=== PATIENT | female | born 1955 | race Caucasian/White ===

== ENCOUNTER 2018-10-26 06:50 | Day surgery (SDC) | payer MEDICARE, OTHER ==
[~2018-10-26] VITALS: Ht 165.1 cm; Wt 97.0 kg
[~2018-10-26 06:50] MED LIST: ASPI81CH PO; ATOR80 PO; Altoprev60 MG PO; Aspir 8181 MG PO; BISA10S PR; CALCAVITDA PO; CELE100; Colace100 MG PO; ENOX100I SC; HTN MEDICATION PO; HYDACE5 PO; K-Dur20 MEQ PO; LAVAP17G PO; LISI20 PO; LISI5 PO; LOVA20 PO; LOVA40 PO; METO25 PO; METO25ER PO; METPRE4DP PO; NITR.6SL SL; OMEP20ER PO; OMEP40CA12 PO; ONDA4 PO; POTASSIUM CHLO20 MEQ PO; POTCHL10ER PO; PRED20 PO; PROM25 PO; Pepcid20 MG PO; Plavix75 MG PO; Prednisone2.5 MG PO; RISEDRONATE SOD35 M1 PO; TRAM50 PO; Toprol Xl25 MG PO; Vitamin D2000 UNIT PO; WARF7.5 PO; XARELTO15 MG PO; XARELTO20 MG PO; ZOLP5 PO; Zofran4 MG PO
== END 2018-10-26 08:52 | disposition home or self-care (01) ==
LOC: ORSCSDS 06:50
PROVIDERS: Internal Medicine Gastroenterology
PROC: 0DB58ZX Excision of Esophagus, Via Natural or Artificial Opening Endoscopic, Diagnostic (ICD-10-PCS; principal; 2018-10-26 08:00)
PROC: 0DB98ZX Excision of Duodenum, Via Natural or Artificial Opening Endoscopic, Diagnostic (ICD-10-PCS; principal; 2018-10-26 08:00)
PROC: 0DB68ZX Excision of Stomach, Via Natural or Artificial Opening Endoscopic, Diagnostic (ICD-10-PCS; principal; 2018-10-26 08:00)
DX: R13.10 Dysphagia, unspecified (principal); R11.2 Nausea with vomiting, unspecified; K21.9 Gastro-esophageal reflux disease without esophagitis; K31.7 Polyp of stomach and duodenum; Q45.8 Other specified congenital malformations of digestive system; K44.9 Diaphragmatic hernia without obstruction or gangrene; K22.8 Other specified diseases of esophagus; Z79.82 Long term (current) use of aspirin; Z79.899 Other long term (current) drug therapy
CPT/HCPCS: 88305; 88342; J0330; J0461; J2405; J2704; J7120

== ENCOUNTER 2019-01-10 08:56 | Emergency (ER) | payer MEDICARE, OTHER ==
[~2019-01-10] VITALS: Ht 165.1 cm; Wt 88.0 kg
[2019-01-10] MEDS ORDERED: FURO80 (09:17)
[2019-01-10] MEDS ORDERED: Roxicodone5 MG PO (10:22)
[2019-01-10] MEDS ORDERED: TIZA4 PO (10:22)
== END 2019-01-10 10:30 | disposition home or self-care (01) ==
LOC: ER 08:56
DX: S29.011A Strain of muscle and tendon of front wall of thorax, initial encounter (principal); X58.XXXA Exposure to other specified factors, initial encounter; I10 Essential (primary) hypertension; E78.00 Pure hypercholesterolemia, unspecified; Z95.5 Presence of coronary angioplasty implant and graft; Z88.0 Allergy status to penicillin; Z88.8 Allergy status to other drugs, medicaments and biological substances; Z79.899 Other long term (current) drug therapy; Z79.82 Long term (current) use of aspirin; Z79.52 Long term (current) use of systemic steroids
CPT/HCPCS: 71101; 96372; 99283-25; J1170

== ENCOUNTER 2019-01-16 09:04 | Inpatient (IN) | payer MEDICARE, OTHER ==
[~2019-01-16] VITALS: Ht 165.1 cm; Wt 85.0 kg
[~2019-01-16 09:04] MED LIST changes: +FURO80; +Roxicodone5 MG PO; +TIZA4 PO
[2019-01-16 12:05] LABS: BASOPHILS ABSOLUTE AUTO 0.04 K/mm3 (0.00-0.23); BASOPHILS PERCENT AUTO 0 % (0-2); EOSINOPHILS ABSOLUTE AUTO 0.05 K/mm3 (0.00-0.68); EOSINOPHILS PERCENT AUTO 0 % (0-6); Hematocrit 38.8 % (33.0-51.0); Hemoglobin 12.3 g/dL (11.5-16.0); IMMATURE GRAN ABSOLUTE AUTO 0.06 K/mm3 (0.00-0.10); IMMATURE GRAN PERCENT AUTO 1 % (0-1); LYMPHOCYTES ABSOLUTE AUTO 1.33 K/mm3 (0.84-5.20); LYMPHOCYTES PERCENT AUTO 11 % (21-46); MONOCYTES ABSOLUTE AUTO 0.79 K/mm3 (0.16-1.47); MONOCYTES PERCENT AUTO 7 % (4-13); Mean Corpuscular HGB 31.7 pg (26.0-34.0); Mean Corpuscular HGB Conc 31.7 g/dL (31.5-36.5); Mean Corpuscular Volume 100 fL (80-100); Mean Platelet Volume 11.5 fL (9.1-12.4); NEUTROPHILS ABSOLUTE AUTO 9.36 K/mm3 (1.96-9.15); NEUTROPHILS PERCENT AUTO 81 % (41-73); Platelet Count 155 K/mm3 (150-400); RDW Coefficient Variation 13.4 % (11.7-14.2); RDW Standard Deviation 49.5 fL (35.1-46.3); Red Blood Cell Count 3.88 M/mm3 (3.80-5.20); White Blood Cell Count 11.63 K/mm3 (4.00-11.30)
[2019-01-16 12:29] LABS: Alanine Aminotransfer (ALT/SGP 41 U/L (12-78); Albumin, Blood 3.2 g/dL (3.4-5.0); Albumin/Globulin Ratio 0.9 (0.8-1.8); Alk Phos 105 U/L (50-136); Anion Gap 5 mmol/L (6-16); Aspartate Aminotrans (AST/SGOT 18 U/L (12-37); Bilirubin, Total 0.8 mg/dL (0.1-1.0); Blood Urea Nitrogen 17 mg/dL (8-24); Bun/Creatinine Ratio 21.9 (12.0-20.0); CO2, Blood 29 mmol/L (21-32); Calcium, Blood 8.6 mg/dL (8.5-10.1); Chloride, Blood 107 mmol/L (98-108); Creatinine, Blood 0.78 mg/dL (0.40-1.00); Globulin, Blood 3.6 g/dL (2.2-4.0); Glomerular Filtration Rate >60 (60-); Glucose, Blood 118 mg/dL (70-99); Potassium, Blood 3.9 mmol/L (3.5-5.5); Sodium, Blood 141 mmol/L (136-145); Total Protein, Blood 6.8 g/dL (6.4-8.2)
[2019-01-16] MEDS ORDERED: PRINIVIL10 MG PO (12:29)
[2019-01-16] MEDS ORDERED: PRED1 PO (12:43)
[2019-01-16 15:13] LABS: International Normalized Ratio 1.03; Prothrombin Time Results 10.9 Sec (9.7-11.5)
[2019-01-16] MEDS ORDERED: OXYC5 PO (15:56)
--- NOTE | 2019-01-16 18:29 | NUR ---
SHIFT SUMMARY: PATIENT ARRIVED TO PCU 3 AT APPROX 1500 VIA GURNEY FROM ER. PATIENT ABLE TO PIVOT TRANSFER TO BED WITH MINIMAL ASSIST D/T PAIN AND SOME MILD DIZZY SENSATIONS PER PATIENT. PATIENT SKIN C/D/I, NEW LINE STARTED IN TIFFANIE. PATIENT ADMISSION COMPLETED AND PATIENT ORIENTED TO ROOM, CALL LIGHT AND HOSPITAL POLICES. 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 PATIENT VSS ALTHOUGH SBP IS IN 90'S, BED LOW AND LOCKED WITH CALL LIGHT WITHIN REACH.
--- NOTE | 2019-01-17 07:11 | NUR ---
SUMMARY NO ACUTE CHANGES NOTED THROUGH THE NIGHT. PT REMAINS A&O X4. VSS, 2 L O2 VIA NC. DENIES SOB. 1 ASSIST TO THE BATHROOM. HEPERIN GTT @ 15 UNITS/KG/HR. REPORT GIVEN TO CELINE VINES. CALL LIGHT IN REACH
[2019-01-17 08:49] LABS: Hematocrit 39.1 % (33.0-51.0); Hemoglobin 12.2 g/dL (11.5-16.0); Mean Corpuscular HGB Conc 31.2 g/dL (31.5-36.5); Mean Corpuscular Volume 100 fL (80-100); Mean Platelet Volume 12.1 fL (9.1-12.4); Platelet Count 165 K/mm3 (150-400); RDW Coefficient Variation 13.6 % (11.7-14.2); RDW Standard Deviation 49.9 fL (35.1-46.3); Red Blood Cell Count 3.93 M/mm3 (3.80-5.20); White Blood Cell Count 11.06 K/mm3 (4.00-11.30)
[2019-01-17 08:57] LABS: Alanine Aminotransfer (ALT/SGP 40 U/L (12-78); Albumin, Blood 2.8 g/dL (3.4-5.0); Albumin/Globulin Ratio 0.7 (0.8-1.8); Alk Phos 113 U/L (50-136); Anion Gap 2 mmol/L (6-16); Aspartate Aminotrans (AST/SGOT 34 U/L (12-37); Bilirubin, Total 0.8 mg/dL (0.1-1.0); Blood Urea Nitrogen 19 mg/dL (8-24); Bun/Creatinine Ratio 19.5 (12.0-20.0); CO2, Blood 31 mmol/L (21-32); Calcium, Blood 8.9 mg/dL (8.5-10.1); Chloride, Blood 105 mmol/L (98-108); Creatinine, Blood 0.97 mg/dL (0.40-1.00); Glomerular Filtration Rate >60 (60-); Glucose, Blood 119 mg/dL (70-99); Sodium, Blood 138 mmol/L (136-145); Total Protein, Blood 6.8 g/dL (6.4-8.2)
--- NOTE | 2019-01-17 09:01 | NUR ---
DR HOUSE HERE TO SEE PT.
--- NOTE | 2019-01-17 11:28 | NUR ---
Patient is sitting up in bed with spouse, Dipesh, bedside. Patient explains her medical condition and her spiritual background (we share similar history in that we both attended [facility] for several years and patient still attends). Patient also told me her experience of the privious night in which she had extreme nightmares that she thought might be the result of the pain medications. I listened empathically and provided pastoral certified addiction counselor and prayer. Patient and Dipesh responded well and voiced appreciation for the visit. I will continue to remain available to patient and family.
--- NOTE | 2019-01-17 17:50 | NUR ---
DISCUSSED BOWEL CARE WITH PT EARLIER TODAY WITH PT AND . PT NOW REQUESTING TO HAVE SUPPOSITORY ORDERED FOR HER TO BE ABLE TO HAVE. DR NOTIFIED, SEE ORDER.
--- NOTE | 2019-01-17 19:44 | NUR ---
SHIFT SUMMARY PT EATING SMALL AMTS OF FOOD SHE REPORTS SHE HAS BEEN DOING SINCE SHE HAD A HERNIA REPAIR IN DECEMBER. PT BEEN ASSISTED WITH ADL'S PRN. PT BEEN MED FOR NAUSEA AND PAIN PRN PT REQ. PT BEEN UP TO BATHROOM. PT WAS INITIALLY ON 2L02NC AND IS NOW ON RA PER HER REQ AND BIOX OF 100% EARLIER TODAY AT TIME OF TAKING 02 OFF. PT FAMILY IN/OUT OF ROOM. PT REPORTS PASSING GAS BUT NO BM FOR SEVERAL DAYS. DISCUSSED BOWEL CARE WITH PT AND DR, SEE OTHER NOTE. PT REPORTS VOIDING WELL. PT HAS BEEN ON HEPARIN GTT T/O DAY.
[2019-01-18 03:03] LABS: Adenovirus Not Detected (NOT DETECT); Bordetella pertussis Not Detected (NOT DETECT); Chlamydophila pneumoniae Not Detected (NOT DETECT); Coronavirus 229E Not Detected (NOT DETECT); Coronavirus HKU1 Not Detected (NOT DETECT); Coronavirus NL63 Not Detected (NOT DETECT); Coronavirus OC43 Not Detected (NOT DETECT); Human Metapneumovirus Not Detected (NOT DETECT); Human Rhinovirus/Enterovirus Not Detected (NOT DETECT); Influenza A Not Detected (NOT DETECT); Influenza A/2009-H1 Not Detected (NOT DETECT); Influenza A/H1 Not Detected (NOT DETECT); Influenza A/H3 Not Detected (NOT DETECT); Influenza B Not Detected (NOT DETECT); Mycoplasma pneumoniae Not Detected (NOT DETECT); Parainfluenza Virus 1 Not Detected (NOT DETECT); Parainfluenza Virus 2 Not Detected (NOT DETECT); Parainfluenza Virus 3 Not Detected (NOT DETECT); Parainfluenza Virus 4 Not Detected (NOT DETECT); Respiratory Syncytial Virus Not Detected (NOT DETECT)
--- NOTE | 2019-01-18 06:18 | NUR ---
SHIFT SUMMARY.; ASSUMED CARE AT 1900. REPORTS NAUSEA AND WAS AFRAID THE ZOFRAN CAUSES HER NAUSEA. REMINDED IT WAS GIVEN AT SAME TIME OF FENTENYL AND AGREES TO TAKE IT AGAIN FOR NAUSEA. WELL AWARE HER NO BM FOR 7 DAYS IS MOST OF HER STOMACH PROBLEMS. PAIN TOLERABLE AT 3 AND REPORTS IT IS BELOW RT BREAST WRAPPING AROUND TO MID BACK. REFUSED ALL NOC TO HAVE ANYTHING FOR PAIN . EVEN REFUSED TORDOL. ENC TO DEEP BREATHE AND INSPIRATION DOES INCREASE THIS PAIN SLIGHTLY. DOES NOT PROMOTE A COUGH. REFUSED TO TAKE ANY PILLS ALL NOC AND THE MEDS FOR BOWEL CARE. REFUSED TO EAT . LOPRESSOR TAKEN AND REDUCED HR.ST 120 - 100. INDEPENDANT IN ROOM. PLACED CALL TO MD AFTER FAILURE OF DULCOLAX SUPP. FLEETS ENEMA.AND SOME FLATUS AND REPORTS SMALL HARD STOOL . WAS RETCHING WHILE ON TOILET AND REPORTS SHE HAD SOME PHLEM COUGHED UP AND CALLS IT VOMITING. NO STOMACH CONTENTS VOMITING.
--- NOTE | 2019-01-18 06:45 | NUR ---
TO BR TO TRY FOR A BM . INSPIRATORY PAIN WHILE SITTING ON TOILET. SPENT ABOUT 10 MIN IN BR AND WHEN BACK TO BED INCREASED PAIN AND FINALLY AGREES TO TAKE PAIN MED . AGREES TO TRY TORDOL FIRST BEFORE SUBLIMASE. REFUSES ZOFRAN SINCE PT FEELS IT CAUSES NAUSEA.HEPARIN TURNED OFF SINCE 514. SMALL HARD BM REPORTED AFTER FLEETS. DENIES BLEED IN STOOL .SAT WHEN BACK TO BED AND APPEARED SOB WAS 94%. VERY UNCOMFORTABLE . WILL CHECK BACK SOON NOW THAT TORDOL GIVEN
--- NOTE | 2019-01-18 08:06 | NUR ---
Recieved report from Precious VINES. Patientresting in bed with just elevated playing on iPad. She is alert and most able to communicate her needs, I asked if she feels she could take any am PO med she is very undecided. She states nausea meds makes her nauseated and will call fordifferent medicationa nd have Dr change to IV meds if un able to take. She has PowerGlide in TIFFANIE, dressing intact and site WNL's. Her Heparin gtt is on hold and just cassandra PTT and sent and will await for new orders. She is currently refusing breakfast.
[2019-01-18 09:16] LABS: Alanine Aminotransfer (ALT/SGP 36 U/L (12-78); Albumin, Blood 2.5 g/dL (3.4-5.0); Albumin/Globulin Ratio 0.6 (0.8-1.8); Alk Phos 110 U/L (50-136); Anion Gap 6 mmol/L (6-16); Aspartate Aminotrans (AST/SGOT 20 U/L (12-37); Bilirubin, Total 0.6 mg/dL (0.1-1.0); Blood Urea Nitrogen 14 mg/dL (8-24); Bun/Creatinine Ratio 16.2 (12.0-20.0); CO2, Blood 29 mmol/L (21-32); Calcium, Blood 8.5 mg/dL (8.5-10.1); Chloride, Blood 107 mmol/L (98-108); Creatinine, Blood 0.86 mg/dL (0.40-1.00); Glomerular Filtration Rate >60 (60-); Glucose, Blood 112 mg/dL (70-99); Potassium, Blood 3.8 mmol/L (3.5-5.5); Sodium, Blood 142 mmol/L (136-145); Total Protein, Blood 6.5 g/dL (6.4-8.2)
[2019-01-18 09:54] LABS: BASOPHILS ABSOLUTE AUTO 0.03 K/mm3 (0.00-0.23); BASOPHILS PERCENT AUTO 0 % (0-2); EOSINOPHILS ABSOLUTE AUTO 0.05 K/mm3 (0.00-0.68); EOSINOPHILS PERCENT AUTO 1 % (0-6); Hematocrit 36.5 % (33.0-51.0); Hemoglobin 11.5 g/dL (11.5-16.0); IMMATURE GRAN ABSOLUTE AUTO 0.03 K/mm3 (0.00-0.10); IMMATURE GRAN PERCENT AUTO 0 % (0-1); LYMPHOCYTES ABSOLUTE AUTO 1.73 K/mm3 (0.84-5.20); LYMPHOCYTES PERCENT AUTO 17 % (21-46); MONOCYTES ABSOLUTE AUTO 0.64 K/mm3 (0.16-1.47); MONOCYTES PERCENT AUTO 6 % (4-13); Mean Corpuscular HGB 31.5 pg (26.0-34.0); Mean Corpuscular HGB Conc 31.5 g/dL (31.5-36.5); Mean Corpuscular Volume 100 fL (80-100); Mean Platelet Volume 12.7 fL (9.1-12.4); NEUTROPHILS ABSOLUTE AUTO 7.69 K/mm3 (1.96-9.15); NEUTROPHILS PERCENT AUTO 76 % (41-73); Platelet Count 210 K/mm3 (150-400); RDW Coefficient Variation 13.2 % (11.7-14.2); Red Blood Cell Count 3.65 M/mm3 (3.80-5.20); White Blood Cell Count 10.17 K/mm3 (4.00-11.30)
--- NOTE | 2019-01-18 11:33 | NUR ---
Patient tolerated meds crushed in apple sauce with water and stated it would of been better just to take pills. Gave reglan IV for stomach upset. She was up and took shower and currently in bed with family at bedside. She is now med with tele per hospitalist.
--- NOTE | 2019-01-18 15:30 | NUR ---
Patient has been independent around room and ambulated hallway with . She has not mentioned about any nausea recently and has been tolerating intake in small amounts. VSS.
--- NOTE | 2019-01-18 18:26 | NUR ---
Patient sitting sitting up at bedside eating dinner, states no nausea and poor feelings. She is independent in room. She is tolerating PO meds well. VSS. She continues to be med status with tele and awaiting room.
--- NOTE | 2019-01-18 23:00 | NUR ---
RECEIVED HAND OFF FROM Arpita JO RN USING SBAR. TRANSPORTED TO ROOM VIA WHEELCHAIR WITH ALL BELONGINGS FROM PCU ROOM 3. TRANSFERED SELF TO BED. ORIENTED TO ROOM, CALL SYSTEM, AND POC, VOICES UNDERSTANDING. REFUSES OFFER FOR FLUIDS OR NOURISHMENT. SENIES PAIN, DISCOMFORT, OR FUTHER NEEDS AT THIS TIME. SAFETY MEASURES IN PLACE. WILL CONTINUE TO MONITOR.
--- NOTE | 2019-01-18 23:04 | NUR ---
Pt to Surgical 229 via wheelchair at approx 2300. Pt able to ambulate from PCU 3 bed to wheelchair independantly, c/o mild stomach upset upon transfer. Update to JASMYN Thomas on pt condition.
--- NOTE | 2019-01-19 06:11 | NUR ---
SHIFT SUMMARY LYING IN SEMI FOWLERS WITH EYES CLOSED. TREATED FOR PAIN X1 SINCE TRANSFER TO ROOM FROM PCU. DENIES CURRENT PAIN, FURTHER NEEDS, OR OTHER WANTS AT THIS TIME. SAFETY MEASURES IN PLACE. WILL GIVE HAND OFF TO ONCOMING SHIFT USING SBAR.
--- NOTE | 2019-01-19 08:45 | NUR ---
meds given as sched pt eating breakfast
[2019-01-19 08:54] LABS: BASOPHILS ABSOLUTE AUTO 0.03 K/mm3 (0.00-0.23); BASOPHILS PERCENT AUTO 0 % (0-2); EOSINOPHILS ABSOLUTE AUTO 0.11 K/mm3 (0.00-0.68); EOSINOPHILS PERCENT AUTO 1 % (0-6); Hematocrit 36.7 % (33.0-51.0); Hemoglobin 11.6 g/dL (11.5-16.0); IMMATURE GRAN ABSOLUTE AUTO 0.05 K/mm3 (0.00-0.10); IMMATURE GRAN PERCENT AUTO 1 % (0-1); LYMPHOCYTES ABSOLUTE AUTO 2.65 K/mm3 (0.84-5.20); LYMPHOCYTES PERCENT AUTO 27 % (21-46); MONOCYTES ABSOLUTE AUTO 0.55 K/mm3 (0.16-1.47); MONOCYTES PERCENT AUTO 6 % (4-13); Mean Corpuscular HGB 31.7 pg (26.0-34.0); Mean Corpuscular HGB Conc 31.6 g/dL (31.5-36.5); Mean Corpuscular Volume 100 fL (80-100); NEUTROPHILS ABSOLUTE AUTO 6.34 K/mm3 (1.96-9.15); NEUTROPHILS PERCENT AUTO 65 % (41-73); Platelet Count 233 K/mm3 (150-400); RDW Coefficient Variation 13.2 % (11.7-14.2); Red Blood Cell Count 3.66 M/mm3 (3.80-5.20); White Blood Cell Count 9.73 K/mm3 (4.00-11.30)
[2019-01-19 09:50] LABS: Alanine Aminotransfer (ALT/SGP 32 U/L (12-78); Albumin, Blood 2.6 g/dL (3.4-5.0); Albumin/Globulin Ratio 0.6 (0.8-1.8); Alk Phos 107 U/L (50-136); Anion Gap 2 mmol/L (6-16); Aspartate Aminotrans (AST/SGOT 25 U/L (12-37); Bilirubin, Total 0.5 mg/dL (0.1-1.0); Blood Urea Nitrogen 19 mg/dL (8-24); Bun/Creatinine Ratio 19.4 (12.0-20.0); CO2, Blood 27 mmol/L (21-32); Calcium, Blood 8.7 mg/dL (8.5-10.1); Chloride, Blood 110 mmol/L (98-108); Creatinine, Blood 0.98 mg/dL (0.40-1.00); Globulin, Blood 4.1 g/dL (2.2-4.0); Glomerular Filtration Rate >60 (60-); Glucose, Blood 104 mg/dL (70-99); Potassium, Blood 3.8 mmol/L (3.5-5.5); Sodium, Blood 139 mmol/L (136-145); Total Protein, Blood 6.7 g/dL (6.4-8.2)
--- NOTE | 2019-01-19 10:25 | NUR ---
dr fernandez by to see pt ok to discharge home
[2019-01-19] MEDS ORDERED: Prinivil10 MG PO (10:45)
[2019-01-19] MEDS ORDERED: XARELTO1 EACH PO (10:49)
[2019-01-19] MEDS ORDERED: BENZ100A PO (10:49)
--- NOTE | 2019-01-19 10:58 | NUR ---
PHYSICAL THERAPY BY TO SEE PT AMB IN HALLWAY
--- NOTE | 2019-01-19 11:38 | NUR ---
PT TAKING A SHOWER
--- NOTE | 2019-01-19 11:46 | NUR ---
ECHO AT BEDSIDE
--- NOTE | 2019-01-19 12:14 | NUR ---
Echocardiogram completed.
--- NOTE | 2019-01-19 12:30 | NUR ---
pt eating lunch
--- NOTE | 2019-01-19 12:59 | NUR ---
discharge instructions reviewed with pt verbalized rx given earlier faxed rx to [facility]
== END 2019-01-19 13:28 | disposition home or self-care (01) | DRG 176 ==
LOC: ER 09:04 → MEDS 09:05 → PCU 15:30 → SURS 01-18 23:00
PROVIDERS: Internal Medicine; Pharmacist; ADMIT Internal Medicine
DX: I26.99 Other pulmonary embolism without acute cor pulmonale (principal); I25.10 Atherosclerotic heart disease of native coronary artery without angina pectoris; I10 Essential (primary) hypertension; E78.00 Pure hypercholesterolemia, unspecified; Z95.5 Presence of coronary angioplasty implant and graft; Z86.718 Personal history of other venous thrombosis and embolism; Z88.0 Allergy status to penicillin; Z88.8 Allergy status to other drugs, medicaments and biological substances; Z79.82 Long term (current) use of aspirin; Z79.899 Other long term (current) drug therapy
CPT/HCPCS: 0099U; 36415; 71046; 71260; 80053; 83880; 85025; 85027; 85610; 85730; 93005; 93010; 93306; 94760; 96365-59; 96375; 96375-59; 96376; 97110; 97116; 97162; 99285-25; C1751; G0378; J1170; J1644; J1885; J1956; J2405; J2765; J3010; J7030; J7512; Q9967

== ENCOUNTER 2019-02-10 10:03 | Emergency (ER) | payer MEDICARE, OTHER ==
[~2019-02-10] VITALS: Ht 165.1 cm; Wt 86.6 kg
[~2019-02-10 10:03] MED LIST changes: +BENZ100A PO; +OXYC5 PO; +PRED1 PO; +PRINIVIL10 MG PO; +Prinivil10 MG PO; +XARELTO1 EACH PO
[2019-02-10 10:37] LABS: BASOPHILS ABSOLUTE AUTO 0.06 K/mm3 (0.00-0.23); BASOPHILS PERCENT AUTO 1 % (0-2); EOSINOPHILS ABSOLUTE AUTO 0.05 K/mm3 (0.00-0.68); EOSINOPHILS PERCENT AUTO 1 % (0-6); Hematocrit 36.6 % (33.0-51.0); Hemoglobin 11.5 g/dL (11.5-16.0); IMMATURE GRAN ABSOLUTE AUTO 0.06 K/mm3 (0.00-0.10); IMMATURE GRAN PERCENT AUTO 1 % (0-1); LYMPHOCYTES ABSOLUTE AUTO 3.03 K/mm3 (0.84-5.20); LYMPHOCYTES PERCENT AUTO 28 % (21-46); MONOCYTES ABSOLUTE AUTO 0.59 K/mm3 (0.16-1.47); MONOCYTES PERCENT AUTO 6 % (4-13); Mean Corpuscular HGB 32.8 pg (26.0-34.0); Mean Corpuscular HGB Conc 31.4 g/dL (31.5-36.5); Mean Corpuscular Volume 104 fL (80-100); Mean Platelet Volume 11.6 fL (9.1-12.4); NEUTROPHILS PERCENT AUTO 65 % (41-73); Platelet Count 229 K/mm3 (150-400); RDW Coefficient Variation 15.6 % (11.7-14.2); RDW Standard Deviation 58.5 fL (35.1-46.3); Red Blood Cell Count 3.51 M/mm3 (3.80-5.20); White Blood Cell Count 10.69 K/mm3 (4.00-11.30)
[2019-02-10 10:49] LABS: Alanine Aminotransfer (ALT/SGP 122 U/L (12-78); Albumin, Blood 3.1 g/dL (3.4-5.0); Albumin/Globulin Ratio 0.9 (0.8-1.8); Alk Phos 233 U/L (50-136); Anion Gap 9 mmol/L (6-16); Aspartate Aminotrans (AST/SGOT 67 U/L (12-37); Bilirubin, Total 0.4 mg/dL (0.1-1.0); Blood Urea Nitrogen 22 mg/dL (8-24); Bun/Creatinine Ratio 27.8 (12.0-20.0); CO2, Blood 27 mmol/L (21-32); Calcium, Blood 9.5 mg/dL (8.5-10.1); Chloride, Blood 108 mmol/L (98-108); Creatinine, Blood 0.79 mg/dL (0.40-1.00); Globulin, Blood 3.5 g/dL (2.2-4.0); Glomerular Filtration Rate >60 (60-); Glucose, Blood 107 mg/dL (70-99); Potassium, Blood 3.6 mmol/L (3.5-5.5); Sodium, Blood 144 mmol/L (136-145); Total Protein, Blood 6.6 g/dL (6.4-8.2); Troponin I <0.015 ng/mL (0.000-0.040)
[2019-02-10] MEDS ORDERED: XARELTO20 MG PO (12:08)
== END 2019-02-10 14:51 | disposition home or self-care (01) ==
LOC: ER 10:03
PROVIDERS: Emergency Medicine
DX: R06.00 Dyspnea, unspecified (principal); R00.2 Palpitations; R94.5 Abnormal results of liver function studies; I10 Essential (primary) hypertension; E78.00 Pure hypercholesterolemia, unspecified; Z95.5 Presence of coronary angioplasty implant and graft
CPT/HCPCS: 36415; 71046; 71260; 80053; 83880; 84484; 85025; 93005; 93010; 99285-25; Q9967

== ENCOUNTER → 2020-02-02 | Outpatient (CLI) | payer MEDICARE, OTHER | END | disposition home or self-care (01) | LOC: LAB 08:00 | DX: E78.2 Mixed hyperlipidemia (principal) ==

== ENCOUNTER 2021-11-03 08:25 | Emergency (ER) | payer MEDICARE ==
[~2021-11-03] VITALS: Ht 165.1 cm; Wt 93.0 kg
[2021-11-03] MEDS ORDERED: TRAM50 PO (08:50)
== END 2021-11-03 13:09 | disposition home or self-care (01) ==
LOC: ER 08:25
DX: M25.562 Pain in left knee (principal); M79.662 Pain in left lower leg; I10 Essential (primary) hypertension; Z88.0 Allergy status to penicillin; Z88.8 Allergy status to other drugs, medicaments and biological substances; Z79.899 Other long term (current) drug therapy
CPT/HCPCS: 73562-LT; 93971

== ENCOUNTER 2023-10-25 09:35 | Emergency (ER) | payer MEDICARE ==
[~2023-10-25] VITALS: Ht 165.1 cm; Wt 88.5 kg
[~2023-10-25 09:35] MED LIST changes: +Voltaren100 GM TOP
[2023-10-25] MEDS ORDERED: Ondansetron HCl 2 MG / ML 2ML Vial IV ONE (09:55)
[2023-10-25] MEDS ORDERED: Lactated Ringer's 1,000 ML IV ONE (09:55)
[2023-10-25 10:35] LABS: BASOPHILS ABSOLUTE AUTO 0.03 K/mm3 (0.00-0.23); BASOPHILS PERCENT AUTO 0 % (0-2); EOSINOPHILS PERCENT AUTO 0 % (0-6); Hematocrit 38.8 % (33.0-51.0); Hemoglobin 12.7 g/dL (11.5-16.0); IMMATURE GRAN ABSOLUTE AUTO 0.02 K/mm3 (0.00-0.10); IMMATURE GRAN PERCENT AUTO 0 % (0-1); LYMPHOCYTES ABSOLUTE AUTO 1.06 K/mm3 (0.84-5.20); LYMPHOCYTES PERCENT AUTO 16 % (21-46); MONOCYTES ABSOLUTE AUTO 0.63 K/mm3 (0.16-1.47); MONOCYTES PERCENT AUTO 9 % (4-13); Mean Corpuscular HGB 32.7 pg (26.0-34.0); Mean Corpuscular HGB Conc 32.7 g/dL (31.5-36.5); Mean Corpuscular Volume 100 fL (80-100); NEUTROPHILS ABSOLUTE AUTO 4.96 K/mm3 (1.96-9.15); NEUTROPHILS PERCENT AUTO 74 % (41-73); Platelet Count 173 K/mm3 (150-400); RDW Coefficient Variation 12.8 % (11.7-14.2); RDW Standard Deviation 47.2 fL (35.1-46.3); Red Blood Cell Count 3.88 M/mm3 (3.80-5.20)
[2023-10-25] MEDS ORDERED: Droperidol 5 mg/2 ml Vial IV ONE (10:45)
[2023-10-25 10:53] LABS: Influenza A, PCR NEGATIVE (NEGATIVE); Influenza B, PCR NEGATIVE (NEGATIVE); Resp Syncytial Virus, PCR NEGATIVE (NEGATIVE)
[2023-10-25 10:59] LABS: Albumin, Blood 3.4 g/dL (3.4-5.0); Albumin/Globulin Ratio 1.1 (0.8-1.8); Bilirubin, Total 0.8 mg/dL (0.1-1.0); Bun/Creatinine Ratio 19.6 (12.0-20.0); Calcium, Blood 7.9 mg/dL (8.5-10.1); Creatinine, Blood 0.77 mg/dL (0.40-1.00); Globulin, Blood 3.1 g/dL (2.2-4.0); Potassium, Blood 3.6 mmol/L (3.5-5.5); Total Protein, Blood 6.5 g/dL (6.4-8.2)
[2023-10-25 13:00] VITALS: BP 156/77
[2023-10-25 13:23] LABS: Source, Urine Clean Catch
[2023-10-25 13:24] LABS: SARS-Cov-2 (COVID-19) PCR, MMC POSITIVE (NEGATIVE)
[2023-10-25 13:26] LABS: Appearance, Urine Clear (Clear); Bilirubin, Urine Neg (Neg); Blood, Urine Neg (Neg); Color, Urine Yellow (P-Yellow); Glucose Qualitative, Urine Neg (Neg); Ketones, Urine 4+ (Neg); Leukocyte Esterase, Urine Neg (Neg); Nitrite, Urine Neg (Neg); Protein, Urine 1+ (Neg); Urobilinogen, Urine NORM (Normal)
[2023-10-25] MEDS ORDERED: PROM12.5S PR (13:51)
[2023-10-25] MEDS ORDERED: ONDA4ODT MM (13:51)
[2023-10-26] MEDS ORDERED: CALCIUM 600-VI1 EAC3 PO ×2 (19:26)
[2023-10-26] MEDS ORDERED: L-Lysine500 M1 PO ×2 (19:27)
[2023-10-26] MEDS ORDERED: Prednisone10 MG PO ×2 (21:18)
[2023-10-26] MEDS ORDERED: PREG150 PO (21:20)
== END 2023-10-25 14:15 | disposition home or self-care (01) ==
LOC: ER 09:35
PROVIDERS: Emergency Medicine
DX: U07.1 COVID-19 (principal); E87.1 Hypo-osmolality and hyponatremia; E86.0 Dehydration; Z86.79 Personal history of other diseases of the circulatory system; Z79.899 Other long term (current) drug therapy; Z79.82 Long term (current) use of aspirin; Z79.52 Long term (current) use of systemic steroids; Z88.0 Allergy status to penicillin; Z88.8 Allergy status to other drugs, medicaments and biological substances
CPT/HCPCS: 0241U; 71045; 80053; 83690; 85025; 93005; 93010; 96374; 96375; 99285-25; J1790; J2405; J7120

== ENCOUNTER 2023-10-26 15:23 | Inpatient (IN) | payer MEDICARE ==
[~2023-10-26] VITALS: Ht 165.1 cm; Wt 90.0 kg
[~2023-10-26 15:23] MED LIST changes: +ONDA4ODT MM; +PROM12.5S PR
[2023-10-26 16:13] LABS: BASOPHILS ABSOLUTE AUTO 0.02 K/mm3 (0.00-0.23); BASOPHILS PERCENT AUTO 0 % (0-2); EOSINOPHILS PERCENT AUTO 0 % (0-6); Hematocrit 37.8 % (33.0-51.0); Hemoglobin 13.1 g/dL (11.5-16.0); IMMATURE GRAN ABSOLUTE AUTO 0.01 K/mm3 (0.00-0.10); IMMATURE GRAN PERCENT AUTO 0 % (0-1); LYMPHOCYTES ABSOLUTE AUTO 0.98 K/mm3 (0.84-5.20); LYMPHOCYTES PERCENT AUTO 17 % (21-46); MONOCYTES PERCENT AUTO 10 % (4-13); Mean Corpuscular HGB 33.2 pg (26.0-34.0); Mean Corpuscular HGB Conc 34.7 g/dL (31.5-36.5); Mean Corpuscular Volume 96 fL (80-100); Mean Platelet Volume 10.3 fL (9.1-12.4); NEUTROPHILS ABSOLUTE AUTO 4.29 K/mm3 (1.96-9.15); NEUTROPHILS PERCENT AUTO 73 % (41-73); Platelet Count 173 K/mm3 (150-400); RDW Coefficient Variation 12.8 % (11.7-14.2); RDW Standard Deviation 45.2 fL (35.1-46.3); Red Blood Cell Count 3.95 M/mm3 (3.80-5.20)
[2023-10-26 16:24] LABS: Albumin, Blood 3.4 g/dL (3.4-5.0); Bun/Creatinine Ratio 20.5 (12.0-20.0); Calcium, Blood 8.3 mg/dL (8.5-10.1); Creatinine, Blood 0.58 mg/dL (0.40-1.00); Globulin, Blood 3.5 g/dL (2.2-4.0); Potassium, Blood 3.6 mmol/L (3.5-5.5); Total Protein, Blood 6.9 g/dL (6.4-8.2)
[2023-10-26] MEDS ORDERED: NS 1,000 ML IV SCH ×2 (17:55→19:05)
[2023-10-26] MEDS ORDERED: Metoclopramide HCl 5MG / ML 2ML Vial IV ONE (18:05)
[2023-10-26] MEDS ORDERED: MethylPREDNISolone Sod Succ 125 MG Vial IV ONE (18:05)
[2023-10-26] MEDS ORDERED: Ondansetron HCl 2 MG / ML 2ML Vial IV PRN ×2 (19:05)
[2023-10-26] MEDS ORDERED: Acetaminophen 325 MG TABLET PO PRN (19:05)
[2023-10-26] MEDS ORDERED: Metoclopramide HCl 5MG / ML 2ML Vial IV PRN (19:10)
[2023-10-26] MEDS ORDERED: CALCIUM 600-VI1 EAC3 PO ×2 (19:26)
[2023-10-26] MEDS ORDERED: L-Lysine500 M1 PO ×2 (19:27)
[2023-10-26] MEDS ORDERED: Prednisone10 MG PO ×2 (21:18)
[2023-10-26] MEDS ORDERED: PREG150 PO (21:20)
[2023-10-26 22:01] VITALS: BP 101/82; BP 144/67
[2023-10-27] MEDS ORDERED: FentaNYL Citrate 50 MCG/ML 2 ML Injection IV PRN (00:35)
[2023-10-27] MEDS ORDERED: Prochlorperazine Edisylate 10 mg Vial IV PRN (01:20)
[2023-10-27 02:30] VITALS: BP 127/65
--- NOTE | 2023-10-27 05:28 | NUR ---
SHIFT SUMMARY: "JALYN" IS A&OX4. VSS, NO ACUTE EVENTS SINCE ADMISSION TO THE FLOOR THIS SHIFT. PT REPORTS DIZZINESS, NAUSEA, AND HEADACHE. UNFORTUNATELY, PT REPORTS ADVERSE REACTION TO IV FENTANYL IN THE PAST. IV TO RIGHT WIRST PATENT, FLUIDS INFUSING. SHE IS A STANDBY ASSIST TO THE BATHROOM, PULLUP IN PLACE. PT IS LYING IN BED WITH THE CALL LIGHT IN REACH. WILL GIVE REPORT TO DAY SHIFT RN.
[2023-10-27 05:59] LABS: Bun/Creatinine Ratio 18.9 (12.0-20.0); Calcium, Blood 8.4 mg/dL (8.5-10.1); Creatinine, Blood 0.63 mg/dL (0.40-1.00); Potassium, Blood 3.9 mmol/L (3.5-5.5)
[2023-10-27 08:10] VITALS: BP 134/67
[2023-10-27] MEDS ORDERED: PredniSONE 10 MG Tab PO SCH (09:00)
[2023-10-27] MEDS ORDERED: Rivaroxaban 10 MG Tab PO SCH (09:00)
[2023-10-27] MEDS ORDERED: Hydrocortisone Sod Succinate 100 MG Vial IV ONE (10:00)
[2023-10-27] MEDS ORDERED: Nystatin 100,000 Unit/GM Ointment 15 GM TOP SCH (11:00)
--- NOTE | 2023-10-27 12:35 | NUR ---
"Spiritual Care | Pt. Referral Pt. is awake in bed and welcomes my visit. Pt. is pleasant. Spouse is at bedside. facilitate a medical update and consider many matters of niyah anf belief. Pt. is known to this sanding supervisor from the community. Pt. verbalized her understanding of her condition, while this sanding supervisor sought to normalize the Pts. condition. Prayed with Pt. and spouse. Pt. displayed evidence of an uplifted mood with less anxiety and stress. Both verbalized gratitude for the spiritual care visit and welcomed this sanding supervisor to return."
[2023-10-27 17:19] LABS: Campylobacter Sp Not Detected (NOT DETECT)
[2023-10-27 17:20] LABS: Adenovirus F 40/41 Not Detected (NOT DETECT); Astrovirus Not Detected (NOT DETECT); Cryptosporidium Not Detected (NOT DETECT); Cyclospora Cayetanensis Not Detected (NOT DETECT); E. Coli O157 Not Detected (NOT DETECT); Entamoeba Histolytica Not Detected (NOT DETECT); Enteroaggregative E. coli-EAEC Not Detected (NOT DETECT); Enteropathogenic E. coli-EPEC Not Detected (NOT DETECT); Enterotoxigenic E. coli-ETEC Not Detected (NOT DETECT); Giardia Lamblia Not Detected (NOT DETECT); Norovirus GI/GII Detected (NOT DETECT); Plesiomonas Shigelloides Not Detected (NOT DETECT); Salmonella Sp Not Detected (NOT DETECT); Shiga Toxin-prod E. coli-STEC Not Detected (NOT DETECT); Shigella/Enteroin E. coli-EIEC Not Detected (NOT DETECT); Vibrio Cholerae Not Detected (NOT DETECT); Vibrio Sp Not Detected (NOT DETECT); Yersinia Enterocolitica Not Detected (NOT DETECT)
[2023-10-27 17:21] LABS: Rotavirus A Not Detected (NOT DETECT); Sapovirus Not Detected (NOT DETECT)
[2023-10-27 19:39] VITALS: BP 139/85
[2023-10-27] MEDS ORDERED: Metoprolol Tartrate 25 MG Tab PO SCH (21:00)
[2023-10-27] MEDS ORDERED: Atorvastatin 40 MG Tab PO SCH (21:00)
[2023-10-27] MEDS ORDERED: Calcium/Vit D 600 mg-400 Unit Tab PO SCH (21:00)
[2023-10-28 03:36] VITALS: BP 144/76
[2023-10-28] MEDS ORDERED: Loperamide HCl 2 MG Cap PO PRN (04:40)
[2023-10-28] MEDS ORDERED: Omeprazole 20 MG CapCR PO SCH (06:00)
--- NOTE | 2023-10-28 06:07 | NUR ---
SHIFT SUMMARY PT COOPERATIVE AND PLEASANT. PT SLEPT OFF AND ON THROUGHOUT THE NIGHT. PT HAVING COMPLAINTS OF DIARRHEA. CALLED DR HOUSE AND ORDERED IMODIUM. PT MEDICATED PER EMAR. PT SHOWERED LAST EVENING. PT ALSO HAS COMPLAINTS OF HER MOUTH BOTHERING HER AND SHE WONDERS IF SHE HAS THRUSH. WILL ASK DAY SHIFT RN TO PASS ON TO PHYSICIAN. PT DOES HAVE A PATCH OF WHITE COATING TO HER TONGUE. BED IN LOW POSITION AND CALL LIGHT WITHIN REACH. WILL CONTINUE TO MONITOR.
[2023-10-28 06:20] LABS: Bun/Creatinine Ratio 19.8 (12.0-20.0); Calcium, Blood 9.7 mg/dL (8.5-10.1); Creatinine, Blood 0.86 mg/dL (0.40-1.00); Potassium, Blood 3.6 mmol/L (3.5-5.5)
[2023-10-28 07:42] VITALS: BP 118/58
[2023-10-28] MEDS ORDERED: Lisinopril 5 MG Tab PO SCH (09:00)
[2023-10-28] MEDS ORDERED: Potassium Chloride 10 Meq Tablet SA PO SCH (09:00)
[2023-10-28] MEDS ORDERED: Nystatin 100,000 Unit/ML Susp 5 ML UDC MT SCH ×2 (09:00→13:00)
[2023-10-28] MEDS ORDERED: Hydrocortisone Sod Succinate 100 MG Vial IV ONE (09:10)
[2023-10-28] MEDS ORDERED: Lactated Ringer's 1,000 ML IV SCH (10:00)
[2023-10-28 10:13] VITALS: BP 132/59
[2023-10-28] MEDS ORDERED: TERBINAFINE TOP SCH ×2 (10:16→14:00)
--- NOTE | 2023-10-28 13:12 | NUR ---
Met with Pts. spouse in the hallway outside the room. Spouse reports that the Pt. had a rough night, due to some "intestinal bug". Spouse is going home to let the Pt. rest. This horticultural farmer will chitina back and check on the Pt. later in the afternoon. Spouse verbalized gratitude for the Pts. spiritual care.
[2023-10-28 15:18] VITALS: BP 136/55
--- NOTE | 2023-10-28 17:43 | NUR ---
SHIFT SUMMARY PATIENT MEDICATED FOR DIARHEA TODAY, WITH GOOD RELIEF. SHE REPORTS NO MORE DIARHEA THIS AFTERNOON. SHE IS UP AD GERARDO IN ROOM, DENIES ANY DIZZINESS, REPORTS ABDOMINAL PAIN IS SUBSIDING. BED IN LOW POSITION, CALL LIGHT IN REACH. PATIENT ABLE TO MAKE NEEDS KNOWN.
[2023-10-28 19:29] VITALS: BP 141/63
[2023-10-29 03:42] VITALS: BP 149/62
--- NOTE | 2023-10-29 04:47 | NUR ---
NOC SHIFT SUMMARY PT REPORTS FEELING MUCH BETTER SINCE COMING IN TO THE ER. HER DIARRHEA HAS SUBSIDED AND SHE FEELS STRONGER. NO SOB. CALL LIGHT WIHIN REACH.
[2023-10-29 06:57] LABS: Calcium, Blood 8.9 mg/dL (8.5-10.1); Creatinine, Blood 0.81 mg/dL (0.40-1.00); Potassium, Blood 3.4 mmol/L (3.5-5.5)
[2023-10-29 07:17] VITALS: BP 153/77
[2023-10-29] MEDS ORDERED: Potassium Chloride 20 MEQ TabCR PO ONE (07:25)
--- NOTE | 2023-10-29 08:32 | NUR ---
PATIENT C/O L UPPER EXT PAIN DURING BEDSIDE REPORT; STATING THAT SHE GOT TANGLED IN HER CORDS AND GOWN INJURING HER ARM. SHE STATES THAT IT ACHES,SHARP, AND RADIATING. SHE HAS LIMITED ROM. SHE C/O 8/10 PAIN. ICE PACK AND TYLENOL GIVEN. PATIENT CONCERNED WITH BLOOD CLOT. CALL MADE TO DR. PIKE NOTIFIED HIM OF SITUATION. HE ADVISED TO ORDER A VENOUS DUPLEX STUDY OF AFFECTED AREA. TEST ORDERED.
[2023-10-29] MEDS ORDERED: OxyCODONE HCL 5 MG TAB PO ONE (10:00)
[2023-10-29] MEDS ORDERED: Ibuprofen 400 MG Tab PO ONE (10:00)
[2023-10-29] MEDS ORDERED: ONDA4ODT MM ×2 (11:36)
[2023-10-29] MEDS ORDERED: LOPE2C PO ×2 (11:36)
[2023-10-29] MEDS ORDERED: NYSTATIN100000 U13 MT ×2 (12:18)
--- NOTE | 2023-10-29 12:38 | NUR ---
Pt. is awake in bed when she welcomes my visit. Pt. is pleasant and verbalizes an expectation that she will be discharged home sometime in the afternoon. Facilitate life story and consider matters of niyah and belief. Pt. is unsettled by politics. Provided a listening ear and hopeful considerations. Pt. display evidence of lightened mood. Prayed with Pt. Pt. verbalized gratitude for the spiritual care visit.
--- NOTE | 2023-10-29 14:37 | NUR ---
DISCHARGE NOTE: DISCUSSED DISCHARGE WITH PATIENT WITH HER AT BEDSIDE. NO QUESTIONS OR CONCERNS WITH DISCHARGE. PAIENT WAS DRESSED AND BELONGINGS WERE COLLECTED. PATIENT WHEELED DOWN VIA WHEELCHAIR BY WAREHOUSE TRAINER NO SIGNS OR SYMPTOMS OF DISTRESS DURING DISCHARGE.
== END 2023-10-29 14:30 | disposition home or self-care (01) | DRG 391 ==
LOC: ER 15:23 → MEDS 15:33 → ERHOLD 15:33 → MEDS 21:16
PROVIDERS: Internal Medicine; Nurse Practitioner Acute Care; Student in an Organized Health Care Education/Training Program; ADMIT Internal Medicine
DX: A08.11 Acute gastroenteropathy due to Norwalk agent (principal); U07.1 COVID-19; E87.1 Hypo-osmolality and hyponatremia; B37.0 Candidal stomatitis; K21.9 Gastro-esophageal reflux disease without esophagitis; I10 Essential (primary) hypertension; E78.5 Hyperlipidemia, unspecified; I25.10 Atherosclerotic heart disease of native coronary artery without angina pectoris; M81.0 Age-related osteoporosis without current pathological fracture; K44.9 Diaphragmatic hernia without obstruction or gangrene; E86.0 Dehydration; G90.9 Disorder of the autonomic nervous system, unspecified; H91.90 Unspecified hearing loss, unspecified ear; Z66 Do not resuscitate; Z86.718 Personal history of other venous thrombosis and embolism; Z86.711 Personal history of pulmonary embolism; Z95.5 Presence of coronary angioplasty implant and graft; Z88.0 Allergy status to penicillin; Z88.8 Allergy status to other drugs, medicaments and biological substances; Z79.82 Long term (current) use of aspirin; Z79.899 Other long term (current) drug therapy; Z79.01 Long term (current) use of anticoagulants; Z98.890 Other specified postprocedural states
CPT/HCPCS: 0241U; 36415; 71045; 80048; 80053; 83690; 83880; 85025; 87507; 93005; 93010; 93971; 94762; 96361; 96374; 96375; 96376; 99284-25; 99285-25; A9270; G0378; J0780; J1720; J1790; J2405; J2765; J2919; J7030; J7120; J7512

== ENCOUNTER 2023-11-08 07:40 | Emergency (ER) | payer MEDICARE ==
[~2023-11-08] VITALS: Ht 167.6 cm; Wt 72.6 kg
[~2023-11-08 07:40] MED LIST changes: +CALCIUM 600-VI1 EAC3 PO; +L-Lysine500 M1 PO; +LOPE2C PO; +NYSTATIN100000 U13 MT; +PREG150 PO; +Prednisone10 MG PO
[2023-11-08 08:27] LABS: BASOPHILS ABSOLUTE AUTO 0.03 K/mm3 (0.00-0.23); BASOPHILS PERCENT AUTO 0 % (0-2); EOSINOPHILS ABSOLUTE AUTO 0.01 K/mm3 (0.00-0.68); EOSINOPHILS PERCENT AUTO 0 % (0-6); Hematocrit 41.7 % (33.0-51.0); Hemoglobin 13.1 g/dL (11.5-16.0); IMMATURE GRAN ABSOLUTE AUTO 0.05 K/mm3 (0.00-0.10); IMMATURE GRAN PERCENT AUTO 1 % (0-1); LYMPHOCYTES ABSOLUTE AUTO 2.56 K/mm3 (0.84-5.20); LYMPHOCYTES PERCENT AUTO 25 % (21-46); MONOCYTES PERCENT AUTO 4 % (4-13); Mean Corpuscular HGB 31.8 pg (26.0-34.0); Mean Corpuscular HGB Conc 31.4 g/dL (31.5-36.5); Mean Corpuscular Volume 101 fL (80-100); Mean Platelet Volume 10.9 fL (9.1-12.4); NEUTROPHILS ABSOLUTE AUTO 7.05 K/mm3 (1.96-9.15); NEUTROPHILS PERCENT AUTO 70 % (41-73); Platelet Count 311 K/mm3 (150-400); RDW Coefficient Variation 12.8 % (11.7-14.2); RDW Standard Deviation 47.8 fL (35.1-46.3); Red Blood Cell Count 4.12 M/mm3 (3.80-5.20)
[2023-11-08 08:44] LABS: Albumin, Blood 3.7 g/dL (3.4-5.0); Albumin/Globulin Ratio 1.1 (0.8-1.8); Bun/Creatinine Ratio 22.5 (12.0-20.0); Calcium, Blood 8.4 mg/dL (8.5-10.1); Creatinine, Blood 0.84 mg/dL (0.40-1.00); Globulin, Blood 3.4 g/dL (2.2-4.0); Total Protein, Blood 7.1 g/dL (6.4-8.2)
[2023-11-08 09:25] VITALS: BP 143/62
[2023-11-08] MEDS ORDERED: Methocarbamol 500 MG Tab PO ONE (09:30)
[2023-11-08] MEDS ORDERED: Robaxin750 MG PO (10:22)
== END 2023-11-08 19:31 | disposition home or self-care (01) ==
LOC: ER 07:40
PROVIDERS: Emergency Medicine
DX: R06.02 Shortness of breath (principal); M79.602 Pain in left arm; R11.0 Nausea; Z88.8 Allergy status to other drugs, medicaments and biological substances; Z88.0 Allergy status to penicillin; Z79.899 Other long term (current) drug therapy; Z79.52 Long term (current) use of systemic steroids
CPT/HCPCS: 71045; 80053; 83690; 83880; 84484; 85025; 93005; 93010; 99285-25; A9270

== ENCOUNTER 2024-02-12 07:26 | Inpatient (IN) | payer MEDICARE ==
[~2024-02-12] VITALS: Ht 165.1 cm; Wt 80.7 kg
[~2024-02-12 07:26] MED LIST changes: +Robaxin750 MG PO
[2024-02-12 08:31] LABS: BASOPHILS ABSOLUTE AUTO 0.03 K/mm3 (0.00-0.23); BASOPHILS PERCENT AUTO 0 % (0-2); EOSINOPHILS ABSOLUTE AUTO 0.03 K/mm3 (0.00-0.68); EOSINOPHILS PERCENT AUTO 0 % (0-6); Hematocrit 40.4 % (33.0-51.0); Hemoglobin 13.4 g/dL (11.5-16.0); IMMATURE GRAN ABSOLUTE AUTO 0.04 K/mm3 (0.00-0.10); IMMATURE GRAN PERCENT AUTO 0 % (0-1); LYMPHOCYTES ABSOLUTE AUTO 1.84 K/mm3 (0.84-5.20); LYMPHOCYTES PERCENT AUTO 13 % (21-46); MONOCYTES PERCENT AUTO 7 % (4-13); Mean Corpuscular HGB 32.5 pg (26.0-34.0); Mean Corpuscular HGB Conc 33.2 g/dL (31.5-36.5); Mean Corpuscular Volume 98 fL (80-100); Mean Platelet Volume 11.1 fL (9.1-12.4); NEUTROPHILS ABSOLUTE AUTO 11.76 K/mm3 (1.96-9.15); NEUTROPHILS PERCENT AUTO 80 % (41-73); Platelet Count 211 K/mm3 (150-400); RDW Coefficient Variation 12.7 % (11.7-14.2); RDW Standard Deviation 45.3 fL (35.1-46.3); Red Blood Cell Count 4.12 M/mm3 (3.80-5.20)
[2024-02-12 08:39] LABS: Albumin, Blood 3.3 g/dL (3.4-5.0); Albumin/Globulin Ratio 0.8 (0.8-1.8); Bun/Creatinine Ratio 14.9 (12.0-20.0); Calcium, Blood 9.7 mg/dL (8.5-10.1); Creatinine, Blood 1.01 mg/dL (0.40-1.00); Potassium, Blood 3.6 mmol/L (3.5-5.5); Total Protein, Blood 7.3 g/dL (6.4-8.2)
[2024-02-12] MEDS ORDERED: Ciprofloxacin 400MG/D5 200ML 200 ML IV ONE (10:15)
[2024-02-12] MEDS ORDERED: [UNRECOGNIZED DRUG - OTHER] IV SCH (10:15)
[2024-02-12] MEDS ORDERED: METRONIDAZOLE IV SCH (10:15)
[2024-02-12] MEDS ORDERED: Ketorolac Tromethamine 15mg Vial IV ONE (10:20)
[2024-02-12] MEDS ORDERED: Ondansetron HCl 2 MG / ML 2ML Vial IV ONE (10:20)
[2024-02-12 11:18] LABS: Source, Urine Clean Catch
[2024-02-12 11:25] LABS: Appearance, Urine Clear (Clear); Bilirubin, Urine Neg (Neg); Blood, Urine Neg (Neg); Color, Urine Yellow (P-Yellow); Glucose Qualitative, Urine Neg (Neg); Ketones, Urine 2+ (Neg); Leukocyte Esterase, Urine Neg (Neg); Nitrite, Urine Neg (Neg); Protein, Urine 1+ (Neg); Specific Gravity, Urine 1.015 (1.003-1.022); Urobilinogen, Urine NORM (Normal)
[2024-02-12] MEDS ORDERED: NS 2,000 ML IV ONE (12:13)
[2024-02-12] MEDS ORDERED: Ondansetron HCl 2 MG / ML 2ML Vial IV PRN (12:45)
[2024-02-12] MEDS ORDERED: FLU VACC TS2024-25(6MOS UP)/PF 45 MCG/0.5 ML SYRINGE IM SCH (12:45)
[2024-02-12] MEDS ORDERED: Morphine Sulfate 4 MG/1 ML Injection IV PRN (13:00)
[2024-02-12] MEDS ORDERED: Morphine Sulfate 4 MG/1 ML Injection IV ONE (13:00)
[2024-02-12] MEDS ORDERED: Lactated Ringer's 1,000 ML IV SCH (13:00)
[2024-02-12 13:59] LABS: International Normalized Ratio 1.11; Prothrombin Time Results 11.8 Sec (9.7-11.5)
[2024-02-12] MEDS ORDERED: NS 1,000 ML IV SCH (15:20)
[2024-02-12 15:22] LABS: Anti-Xa UFH, PHA Monitoring 1.06 IU/mL
[2024-02-12 15:35] VITALS: BP 126/76
[2024-02-12] MEDS ORDERED: Heparin Sodium,Porcine/0.5 NS 500 ML IV SCH (15:40)
--- NOTE | 2024-02-12 17:21 | NUR ---
Pt. is awake in bed and welcomes my visit. Pt. is pleasant. Spouse is at bedside. Both Pt. and Spouse are known to this project manager finance from the community. Facilitate an update of the Pts. hospitalization. Consider many matters of niyah and belief. Pt. displays evidence of being at peace. Prayed with the Pt. Pt. and spouse both verbalized gratitude for the spiritual care visit.
[2024-02-12] MEDS ORDERED: MetroNIDAZOLE 500MG/NS 100 ml 100 ML IV SCH (18:00)
--- NOTE | 2024-02-12 19:53 | NUR ---
SHIFT SUMMARY PATIENT WAS ADMITTED FROM ER THIS SHIFT FOR SIGMOID ABSCESS R/T DIVERTIC, A/OX4, VSS, TOLEARATING SIPS/CHIPS PER SURGERY APPROVAL, IV ABX GIVEN ORDERED, HEPARIN DRIP STARTED. NO ACUTE EVENTS THIS SHIFT, CALL LIGHT IN REACH.
[2024-02-12 20:02] VITALS: BP 124/61
[2024-02-12] MEDS ORDERED: Lactobacil 2-S.Thermo-Bifido 1 1 Cap PO SCH (21:00)
[2024-02-12] MEDS ORDERED: Ciprofloxacin 400MG/D5 200ML 200 ML IV SCH (23:00)
[2024-02-12] MEDS ORDERED: Dose Adjust by Pharmacy XX STA (23:48)
[2024-02-12] MEDS ORDERED: Heparin Sodium 5000 Units/ML 1ML MDV IV ONE (23:50)
[2024-02-13 04:16] VITALS: BP 135/77
--- NOTE | 2024-02-13 04:36 | NUR ---
SHIFT SUMMARY PAIN MANAGED W/ MORPHINE PER EMAR, NAUSEA TREATED W/ ZOFRAN W/ GOOD RESULTS. PT ABLE TO REST MOST OF SHIFT. PASSING FLATUS BUT NO BM, VOIDING APPROPRIATELY. NPO W/ SIPS AND CHIPS. IV FLUIDS, ABX, AND HEPARIN RUNNING PER ORDERED RATE. PT IND TO BATHROOM. VSS. PLAN FOR NONSURGICAL MANAGMENT.
[2024-02-13 06:03] LABS: BASOPHILS ABSOLUTE AUTO 0.05 K/mm3 (0.00-0.23); BASOPHILS PERCENT AUTO 1 % (0-2); EOSINOPHILS ABSOLUTE AUTO 0.11 K/mm3 (0.00-0.68); EOSINOPHILS PERCENT AUTO 1 % (0-6); Hemoglobin 10.8 g/dL (11.5-16.0); IMMATURE GRAN ABSOLUTE AUTO 0.04 K/mm3 (0.00-0.10); IMMATURE GRAN PERCENT AUTO 0 % (0-1); LYMPHOCYTES ABSOLUTE AUTO 3.13 K/mm3 (0.84-5.20); LYMPHOCYTES PERCENT AUTO 31 % (21-46); MONOCYTES ABSOLUTE AUTO 0.81 K/mm3 (0.16-1.47); MONOCYTES PERCENT AUTO 8 % (4-13); Mean Corpuscular HGB 32.4 pg (26.0-34.0); Mean Corpuscular HGB Conc 31.8 g/dL (31.5-36.5); Mean Corpuscular Volume 102 fL (80-100); Mean Platelet Volume 11.1 fL (9.1-12.4); NEUTROPHILS ABSOLUTE AUTO 5.94 K/mm3 (1.96-9.15); NEUTROPHILS PERCENT AUTO 59 % (41-73); Platelet Count 180 K/mm3 (150-400); RDW Coefficient Variation 13.1 % (11.7-14.2); RDW Standard Deviation 49.1 fL (35.1-46.3); Red Blood Cell Count 3.33 M/mm3 (3.80-5.20); White Blood Cell Count 10.08 K/mm3 (4.00-11.30)
[2024-02-13 06:43] LABS: Albumin, Blood 2.3 g/dL (3.4-5.0); Albumin/Globulin Ratio 0.7 (0.8-1.8); Bilirubin, Total 0.7 mg/dL (0.1-1.0); Bun/Creatinine Ratio 14.8 (12.0-20.0); Calcium, Blood 7.9 mg/dL (8.5-10.1); Creatinine, Blood 0.88 mg/dL (0.40-1.00); Globulin, Blood 3.3 g/dL (2.2-4.0); Potassium, Blood 3.4 mmol/L (3.5-5.5); Total Protein, Blood 5.6 g/dL (6.4-8.2)
[2024-02-13 07:32] VITALS: BP 117/49
--- NOTE | 2024-02-13 11:51 | NUR ---
DR MEDLEY IN TO SEE PT.
[2024-02-13] MEDS ORDERED: Polyethylene Glycol 3350 17 gm PO PRN (12:00)
[2024-02-13 12:19] LABS: Hematocrit 32.9 % (33.0-51.0); Hemoglobin 10.7 g/dL (11.5-16.0); Mean Corpuscular HGB 32.1 pg (26.0-34.0); Mean Corpuscular HGB Conc 32.5 g/dL (31.5-36.5); Mean Corpuscular Volume 99 fL (80-100); Mean Platelet Volume 10.9 fL (9.1-12.4); Platelet Count 191 K/mm3 (150-400); Red Blood Cell Count 3.33 M/mm3 (3.80-5.20); White Blood Cell Count 8.09 K/mm3 (4.00-11.30)
[2024-02-13] MEDS ORDERED: Potassium Chloride 10 Meq Tablet SA PO ONE (14:30)
--- NOTE | 2024-02-13 15:06 | NUR ---
DR HONG IN TO SEE PT.
[2024-02-13] MEDS ORDERED: PredniSONE 10 MG Tab PO SCH (16:00)
[2024-02-13 16:23] VITALS: BP 127/69
[2024-02-13] MEDS ORDERED: Calcium/Vit D 600 mg-400 Unit Tab PO SCH (17:00)
[2024-02-13] MEDS ORDERED: Metoprolol Tartrate 25 MG Tab PO SCH (17:00)
--- NOTE | 2024-02-13 17:49 | NUR ---
SUMMARY NO ACUTE CHANGES T/O SHIFT. PT ADVANCED TO CLEAR LIQUIDS/TOLERATING. MEDICATED TWICE DURING SHIFT FOR REPORT OF NAUSEA. PT SHOWERED THIS AFTERNOON. HEPARIN DRIP DC'D MIDDAY PER ORDERS. RESTING IN BED W/CALL LIGHT IN REACH.
[2024-02-13] MEDS ORDERED: Enoxaparin 80 MG/0.8 ML SYR SC SCH (20:00)
[2024-02-13 20:09] VITALS: BP 129/62
[2024-02-13] MEDS ORDERED: Atorvastatin 40 MG Tab PO SCH (21:00)
[2024-02-14 02:32] VITALS: BP 137/60
--- NOTE | 2024-02-14 04:05 | NUR ---
SHIFT SUMMARY PT IND TO BATHROOM, PASSING GAS BUT STATES SHE FEELS CONSTIPATED. MIRALAX GIVEN W/ NO SUCCESS. MEDICATED FOR NAUSEA PT PT STATES PAIN IS TOLERABLE. IV FLUIDS AND ABX GIVEN ORDERED. PT TOLERATING CL DIET. VSS. USING CALL LIGHT APPROPRIATELY.
[2024-02-14] MEDS ORDERED: Omeprazole 20 MG CapCR PO SCH (06:00)
[2024-02-14 06:33] LABS: BASOPHILS ABSOLUTE AUTO 0.04 K/mm3 (0.00-0.23); BASOPHILS PERCENT AUTO 1 % (0-2); EOSINOPHILS ABSOLUTE AUTO 0.06 K/mm3 (0.00-0.68); EOSINOPHILS PERCENT AUTO 1 % (0-6); Hematocrit 32.7 % (33.0-51.0); Hemoglobin 10.3 g/dL (11.5-16.0); IMMATURE GRAN ABSOLUTE AUTO 0.02 K/mm3 (0.00-0.10); IMMATURE GRAN PERCENT AUTO 0 % (0-1); LYMPHOCYTES ABSOLUTE AUTO 1.93 K/mm3 (0.84-5.20); LYMPHOCYTES PERCENT AUTO 28 % (21-46); MONOCYTES ABSOLUTE AUTO 0.48 K/mm3 (0.16-1.47); MONOCYTES PERCENT AUTO 7 % (4-13); Mean Corpuscular HGB 32.1 pg (26.0-34.0); Mean Corpuscular HGB Conc 31.5 g/dL (31.5-36.5); Mean Corpuscular Volume 102 fL (80-100); Mean Platelet Volume 10.9 fL (9.1-12.4); NEUTROPHILS ABSOLUTE AUTO 4.43 K/mm3 (1.96-9.15); NEUTROPHILS PERCENT AUTO 64 % (41-73); Platelet Count 174 K/mm3 (150-400); RDW Coefficient Variation 12.4 % (11.7-14.2); RDW Standard Deviation 46.6 fL (35.1-46.3); Red Blood Cell Count 3.21 M/mm3 (3.80-5.20); White Blood Cell Count 6.96 K/mm3 (4.00-11.30)
[2024-02-14 06:53] LABS: Albumin, Blood 2.3 g/dL (3.4-5.0); Albumin/Globulin Ratio 0.7 (0.8-1.8); Bilirubin, Total 0.5 mg/dL (0.1-1.0); Bun/Creatinine Ratio 5.4 (12.0-20.0); Calcium, Blood 8.7 mg/dL (8.5-10.1); Creatinine, Blood 0.74 mg/dL (0.40-1.00); Globulin, Blood 3.1 g/dL (2.2-4.0); Potassium, Blood 3.8 mmol/L (3.5-5.5); Total Protein, Blood 5.4 g/dL (6.4-8.2)
[2024-02-14 07:15] VITALS: BP 150/57
[2024-02-14] MEDS ORDERED: Lisinopril 5 MG Tab PO SCH (09:00)
[2024-02-14] MEDS ORDERED: Potassium Chloride 10 Meq Tablet SA PO SCH (09:00)
[2024-02-14] MEDS ORDERED: Docusate Sodium 100 MG Cap PO ONE (10:00)
[2024-02-14] MEDS ORDERED: Docusate Sodium 100 MG Cap PO PRN (10:00)
[2024-02-14 15:09] VITALS: BP 127/55
--- NOTE | 2024-02-14 17:20 | NUR ---
SUMMARY NO ACUTE CHANGES T/O SHIFT. PT HAS BEEN TOLERATING LIQUID DIET, PLAN TO ADVANCE TO FULL LIQUIDS FOR DINNER. HAVING BOWEL MOVEMENTS, REPORTS NAUSEA AND PAIN HAVE IMPROVED. INDEPENDENT IN ROOM. CALL LIGHT IN REACH. PT PLEASANT AND COOPERATIVE.
[2024-02-14 19:22] VITALS: BP 137/62
[2024-02-15 03:58] VITALS: BP 170/70
[2024-02-15 04:34] VITALS: BP 158/70
--- NOTE | 2024-02-15 04:38 | NUR ---
SHIFT SUMMARY PT COMFORTABLE, NOT REQUIRING PAIN MEDS. GAVE IV FLUIDS AND ABX ORDERED. IND TO BATHROOM, VOIDING AND HAVING LOOSE BMS. VSS. MEDICATED FOR NAUSEA. USING CALL LIGHT APPROPRIATELY.
[2024-02-15 06:04] LABS: BASOPHILS ABSOLUTE AUTO 0.04 K/mm3 (0.00-0.23); BASOPHILS PERCENT AUTO 1 % (0-2); EOSINOPHILS ABSOLUTE AUTO 0.12 K/mm3 (0.00-0.68); EOSINOPHILS PERCENT AUTO 2 % (0-6); Hematocrit 31.2 % (33.0-51.0); Hemoglobin 10.2 g/dL (11.5-16.0); IMMATURE GRAN ABSOLUTE AUTO 0.03 K/mm3 (0.00-0.10); IMMATURE GRAN PERCENT AUTO 0 % (0-1); LYMPHOCYTES ABSOLUTE AUTO 3.03 K/mm3 (0.84-5.20); LYMPHOCYTES PERCENT AUTO 45 % (21-46); MONOCYTES ABSOLUTE AUTO 0.42 K/mm3 (0.16-1.47); MONOCYTES PERCENT AUTO 6 % (4-13); Mean Corpuscular HGB 32.5 pg (26.0-34.0); Mean Corpuscular HGB Conc 32.7 g/dL (31.5-36.5); Mean Corpuscular Volume 99 fL (80-100); Mean Platelet Volume 11.4 fL (9.1-12.4); NEUTROPHILS ABSOLUTE AUTO 3.05 K/mm3 (1.96-9.15); NEUTROPHILS PERCENT AUTO 46 % (41-73); Platelet Count 201 K/mm3 (150-400); RDW Coefficient Variation 12.5 % (11.7-14.2); RDW Standard Deviation 45.1 fL (35.1-46.3); Red Blood Cell Count 3.14 M/mm3 (3.80-5.20); White Blood Cell Count 6.69 K/mm3 (4.00-11.30)
[2024-02-15 06:34] LABS: Bun/Creatinine Ratio 3.4 (12.0-20.0); Calcium, Blood 8.5 mg/dL (8.5-10.1); Creatinine, Blood 0.87 mg/dL (0.40-1.00); Potassium, Blood 3.2 mmol/L (3.5-5.5)
[2024-02-15 07:28] VITALS: BP 133/49
--- NOTE | 2024-02-15 08:37 | NUR ---
pt. is sitting up and eating breakfast when she welcomes my visit. Pt. is pleasant. Facilitated a life review, and listened with empathy and interest. Today is her spouses birthday. Pt. is able to verbalize a great hope in her niyah. pastroal Care and wordfs of encouragement are given. Prayed with Pt. Pt. verbalized gratitude for the spiritual care visit.
[2024-02-15] MEDS ORDERED: Potassium Chloride 20 MEQ TabCR PO ONE (09:00)
[2024-02-15] MEDS ORDERED: Ondansetron HCl 2 MG / ML 2ML Vial IV PRN (09:55)
[2024-02-15] MEDS ORDERED: NS 250 ML IV PRN (10:00)
[2024-02-15] MEDS ORDERED: GuaiFENesin 600 MG TabCR PO PRN (10:15)
[2024-02-15] MEDS ORDERED: Ascorbic Acid 250 MG Chew PO SCH (11:00)
[2024-02-15] MEDS ORDERED: Prochlorperazine Edisylate 10 mg Vial IV PRN (11:15)
[2024-02-15 15:40] VITALS: BP 155/69
--- NOTE | 2024-02-15 18:30 | NUR ---
SHIFT SUMMARY NO ACUTE EVENTS NOTED TODAY. PT ON CLEAR LIQUID DIET, TOLERATING WELL. DRINKING AND VOIDING WITHOUT ISSUES. PT REPORTS MULTIPLE LOOSE WATERY STOOLS THROUGHOUT THE DAY. BOWEL SOUNDS HEARD IN ALL QUAD. VSS. A&O X4, PLEASENT MOOD. DENIES N/V. BED IN LOWEST POSITION, CALL LIGHT WITHIN REACH.
[2024-02-15 19:52] VITALS: BP 149/69
[2024-02-16 03:47] VITALS: BP 138/59
--- NOTE | 2024-02-16 04:55 | NUR ---
SHIFT SUMMARY NO ACUTE EVENTS THIS SHIFT. PT SLEPT MOST OF NIGHT. IV FLUIDS GIVEN ORDERED. PT CONTINUES TO HAVE LOOSE BMS, VOIDING. VSS. NO COMPLAINTS OF PAIN, MEDICATED FOR NAUSEA. FULL LIQUID DIET. PT SLEEPING IN ROOM, CALL LIGHT IN REACH.
[2024-02-16 05:35] LABS: Hematocrit 31.4 % (33.0-51.0); Hemoglobin 10.2 g/dL (11.5-16.0); Mean Corpuscular HGB 32.3 pg (26.0-34.0); Mean Corpuscular HGB Conc 32.5 g/dL (31.5-36.5); Mean Corpuscular Volume 99 fL (80-100); Mean Platelet Volume 11.6 fL (9.1-12.4); Platelet Count 226 K/mm3 (150-400); RDW Coefficient Variation 12.4 % (11.7-14.2); RDW Standard Deviation 45.2 fL (35.1-46.3); Red Blood Cell Count 3.16 M/mm3 (3.80-5.20); White Blood Cell Count 6.83 K/mm3 (4.00-11.30)
[2024-02-16 06:01] LABS: Magnesium, Blood 1.8 mg/dL (1.6-2.4)
[2024-02-16 06:02] LABS: Albumin, Blood 2.4 g/dL (3.4-5.0); Anion Gap 10 mmol/L (3-11); Blood Urea Nitrogen 2 mg/dL (8-24); Bun/Creatinine Ratio 2.1 (12.0-20.0); CO2, Blood 26 mmol/L (21-32); Calcium, Blood 8.7 mg/dL (8.5-10.1); Chloride, Blood 113 mmol/L (98-108); Creatinine, Blood 0.94 mg/dL (0.40-1.00); Glomerular Filtration Rate 65 (60-); Glucose, Blood 118 mg/dL (70-99); Phosphorus, Blood 3.6 mg/dL (2.5-4.9); Potassium, Blood 3.4 mmol/L (3.5-5.5); Sodium, Blood 146 mmol/L (136-145)
[2024-02-16 07:28] VITALS: BP 138/61
[2024-02-16] MEDS ORDERED: Potassium Chloride 20 MEQ TabCR PO ONE (12:00)
[2024-02-16] MEDS ORDERED: MOXI400 PO (14:48)
[2024-02-16] MEDS ORDERED: ONDA4ODT MM (14:49)
[2024-02-16] MEDS ORDERED: METO5A PO (15:05)
[2024-02-16] MEDS ORDERED: VISBIOME 112.51 EACH PO (15:06)
[2024-02-16 15:39] VITALS: BP 138/63
--- NOTE | 2024-02-16 16:08 | NUR ---
SHIFT SUMMARY S/P ABD PAIN WITH ABSCESS, A/OX4, VSS, TOLERATING PO, DENIES PAIN TODAY, LS CLEAR, DENIES SOB, DIET ADVANCED TO LOW FIBER AND SHE WAS ABLE TO TOLERATE THAT WELL. DISCUSSED DC INSTRUCTIONS INCLUDING HOME CARE, MEDICATIONS, AND FOLLOW UP APPOINTMENTS WITH HER PCP. NO QUESTIONS AT THIS TIME, ESCORTED OUT VIA WC TO PRIVATE AUTO TO GO HOME.
== END 2024-02-16 16:10 | disposition home or self-care (01) | DRG 392 ==
LOC: ER 07:26 → SURS 12:41
PROVIDERS: Internal Medicine Endocrinology, Diabetes & Metabolism; Physician Assistant; ADMIT Family Medicine
DX: K57.20 Diverticulitis of large intestine with perforation and abscess without bleeding (principal); M35.89 Other specified systemic involvement of connective tissue; Z86.711 Personal history of pulmonary embolism; Z66 Do not resuscitate; I25.10 Atherosclerotic heart disease of native coronary artery without angina pectoris; M81.0 Age-related osteoporosis without current pathological fracture; H91.90 Unspecified hearing loss, unspecified ear; Z86.718 Personal history of other venous thrombosis and embolism; Z95.5 Presence of coronary angioplasty implant and graft; Z90.710 Acquired absence of both cervix and uterus; Z88.0 Allergy status to penicillin; Z88.8 Allergy status to other drugs, medicaments and biological substances; Z79.899 Other long term (current) drug therapy; Z98.42 Cataract extraction status, left eye; Z98.41 Cataract extraction status, right eye
CPT/HCPCS: 36415; 74177; 80048; 80053; 80069; 83690; 83735; 85025; 85027; 85520; 85610; 85730; 93005; 93010; 96365; 96375; 99285-25; A9270; J0744; J1644; J1650; J1885; J2270; J2405; J7030; J7120; J7512; Q9967

== ENCOUNTER 2024-04-26 03:16 | Emergency (ER) | payer MEDICARE ==
[~2024-04-26] VITALS: Ht 165.1 cm; Wt 84.8 kg
[~2024-04-26 03:16] MED LIST changes: +METO5A PO; +MOXI400 PO; +VISBIOME 112.51 EACH PO
[2024-04-26] MEDS ORDERED: Acetaminophen 500 MG Tab PO ONE (07:00)
[2024-04-26] MEDS ORDERED: Acetaminophen 325 MG TABLET PO ONE (07:00)
[2024-04-26] MEDS ORDERED: DiphenhydrAMINE HCl 50 MG/ML 1ML Vial IV ONE ×2 (07:00→09:05)
[2024-04-26] MEDS ORDERED: Prochlorperazine Edisylate 10 mg Vial IV ONE ×2 (07:00→09:05)
[2024-04-26] MEDS ORDERED: NS 1,000 ML IV SCH ×2 (07:00→09:05)
[2024-04-26] MEDS ORDERED: OxyCODONE HCL 5 MG TAB PO ONE (07:05)
[2024-04-26] MEDS ORDERED: Ondansetron 4 MG TAB PO ONE (07:15)
[2024-04-26 10:30] VITALS: BP 145/78
[2024-04-26] MEDS ORDERED: ONDA4ODT MM (10:35)
--- NOTE | 2024-04-26 11:13 | NUR ---
Pt. is resting in her ED bed. Spouse is at bedise and welcomes my visit. Both Pt. and Spouse are known to this sales market leader from the community. Pt. wakes up after I arrive but displays evidence of being YUHAAVIATAM. Facilitaed a life review and update. Condiser several matters of niyah and belief. Prayed with Pt. Pt. and spouse both verbalize gratitude for the spiritual care visit.
== END 2024-04-26 10:56 | disposition home or self-care (01) ==
LOC: ER 03:16
DX: R55 Syncope and collapse (principal); I10 Essential (primary) hypertension; R51.9 Headache, unspecified; Z86.718 Personal history of other venous thrombosis and embolism; Z79.01 Long term (current) use of anticoagulants; Z86.711 Personal history of pulmonary embolism; Z95.5 Presence of coronary angioplasty implant and graft; Z88.0 Allergy status to penicillin; Z88.6 Allergy status to analgesic agent; Z88.8 Allergy status to other drugs, medicaments and biological substances; Z79.899 Other long term (current) drug therapy
CPT/HCPCS: 70450; 93005; 93010; 96361; 96374; 96375; 99284-25; A9270; J0780; J1200; J7030

== ENCOUNTER → 2025-01-10 | Outpatient (CLI) | payer MEDICARE ==
[~2025-01-10] MED LIST changes: +AMOCLA875 PO; +MAGNESIUM250 MG PO
[2025-01-10 20:35] LABS: BASOPHILS ABSOLUTE AUTO 0.06 K/mm3 (0.00-0.23); BASOPHILS PERCENT AUTO 1 % (0-2); EOSINOPHILS ABSOLUTE AUTO 0.09 K/mm3 (0.00-0.68); EOSINOPHILS PERCENT AUTO 1 % (0-6); Hematocrit 41.7 % (33.0-51.0); Hemoglobin 13.3 g/dL (11.5-16.0); IMMATURE GRAN ABSOLUTE AUTO 0.03 K/mm3 (0.00-0.10); IMMATURE GRAN PERCENT AUTO 0 % (0-1); LYMPHOCYTES ABSOLUTE AUTO 4.01 K/mm3 (0.84-5.20); LYMPHOCYTES PERCENT AUTO 44 % (21-46); MONOCYTES ABSOLUTE AUTO 0.48 K/mm3 (0.16-1.47); MONOCYTES PERCENT AUTO 5 % (4-13); Mean Corpuscular HGB Conc 31.9 g/dL (31.5-36.5); Mean Corpuscular Volume 101 fL (80-100); NEUTROPHILS ABSOLUTE AUTO 4.49 K/mm3 (1.96-9.15); NEUTROPHILS PERCENT AUTO 49 % (41-73); NRBC ABSOLUTE 0.00 K/mm3 (0.00-0.02); NRBC Auto 0.0 /100 WBC (0.0-0.2); Platelet Count 202 K/mm3 (150-400); RDW Coefficient Variation 12.7 % (11.7-14.2); RDW Standard Deviation 47.1 fL (35.1-46.3)
[2025-01-10 21:20] LABS: Alanine Aminotransfer (ALT/SGP 37 U/L (12-78); Albumin, Blood 3.8 g/dL (3.4-5.0); Albumin/Globulin Ratio 1.2 (0.8-1.8); Anion Gap 9 mmol/L (3-11); Aspartate Aminotrans (AST/SGOT 24 U/L (12-37); Bilirubin, Total 0.8 mg/dL (0.1-1.0); Blood Urea Nitrogen 15 mg/dL (8-24); CHOL/HDL RATIO 3.0; CO2, Blood 29 mmol/L (21-32); Calcium, Blood 9.4 mg/dL (8.5-10.1); Chloride, Blood 107 mmol/L (98-108); Cholesterol 158 mg/dL (50-200); Creatinine, Blood 0.82 mg/dL (0.40-1.00); Globulin, Blood 3.3 g/dL (2.2-4.0); Glucose, Blood 130 mg/dL (70-99); HDL Cholesterol 52 mg/dL (>39); LDL/HDL RATIO 1.4; Low Density Lipoprotein Chol 75 mg/dL (0-110); Potassium, Blood 3.8 mmol/L (3.5-5.5); Sodium, Blood 141 mmol/L (136-145); Total Protein, Blood 7.1 g/dL (6.4-8.2); Triglycerides 157 mg/dL (30-160); Very Low Density Lipoprot Chol 31 mg/dL (6-32)
== END ==
LOC: LAB SHORT 09:52 → LAB 09:52
PROVIDERS: Nurse Practitioner Family
DX: E78.2 Mixed hyperlipidemia (principal); E11.9 Type 2 diabetes mellitus without complications; I10 Essential (primary) hypertension
CPT/HCPCS: 80053; 80061; 83036; 85025

== ENCOUNTER 2025-03-03 12:53 | Inpatient (IN) | payer MEDICARE ==
[~2025-03-03] VITALS: Ht 162.6 cm; Wt 80.7 kg
[~2025-03-03 12:53] MED LIST changes: -CALCIUM 600-VI1 EAC3 PO; +OYSTER SHELL C500 MG PO
[2025-03-03] MEDS ORDERED: Ondansetron HCl 2 MG / ML 2ML Vial IV ONE ×2 (13:10→14:35)
[2025-03-03] MEDS ORDERED: HYDROmorphone HCl/Pf 1MG SYR IV ONE (13:30)
[2025-03-03 13:33] LABS: BASOPHILS ABSOLUTE AUTO 0.05 K/mm3 (0.00-0.23); BASOPHILS PERCENT AUTO 0 % (0-2); EOSINOPHILS ABSOLUTE AUTO 0.01 K/mm3 (0.00-0.68); EOSINOPHILS PERCENT AUTO 0 % (0-6); Hematocrit 40.8 % (33.0-51.0); Hemoglobin 13.4 g/dL (11.5-16.0); IMMATURE GRAN ABSOLUTE AUTO 0.05 K/mm3 (0.00-0.10); IMMATURE GRAN PERCENT AUTO 0 % (0-1); LYMPHOCYTES ABSOLUTE AUTO 1.50 K/mm3 (0.84-5.20); LYMPHOCYTES PERCENT AUTO 11 % (21-46); MONOCYTES ABSOLUTE AUTO 0.87 K/mm3 (0.16-1.47); MONOCYTES PERCENT AUTO 6 % (4-13); Mean Corpuscular HGB Conc 32.8 g/dL (31.5-36.5); Mean Corpuscular Volume 96 fL (80-100); NEUTROPHILS ABSOLUTE AUTO 11.01 K/mm3 (1.96-9.15); NEUTROPHILS PERCENT AUTO 82 % (41-73); NRBC ABSOLUTE 0.00 K/mm3 (0.00-0.02); NRBC Auto 0.0 /100 WBC (0.0-0.2); Platelet Count 159 K/mm3 (150-400); RDW Coefficient Variation 11.9 % (11.7-14.2); RDW Standard Deviation 41.6 fL (35.1-46.3)
[2025-03-03 14:19] LABS: Alanine Aminotransfer (ALT/SGP 25.0 U/L (12-78); Albumin, Blood 3.7 g/dL (3.4-5.0); Albumin/Globulin Ratio 1.2 (0.8-1.8); Anion Gap 7.0 mmol/L (3-11); Aspartate Aminotrans (AST/SGOT 18.0 U/L (12-37); Bilirubin, Total 0.9 mg/dL (0.1-1.0); Blood Urea Nitrogen 14.0 mg/dL (8-24); CO2, Blood 27.0 mmol/L (21-32); Calcium, Blood 8.8 mg/dL (8.5-10.1); Chloride, Blood 105.0 mmol/L (98-108); Creatinine, Blood 0.71 mg/dL (0.40-1.00); Globulin, Blood 3.1 g/dL (2.2-4.0); Glucose, Blood 185.0 mg/dL (70-99); Potassium, Blood 3.6 mmol/L (3.5-5.5); Sodium, Blood 135.0 mmol/L (136-145); Total Protein, Blood 6.8 g/dL (6.4-8.2)
[2025-03-03] MEDS ORDERED: Metoclopramide HCl 5MG / ML 2ML Vial IV ONE (14:40)
[2025-03-03] MEDS ORDERED: OxyCODONE 5 mg/Acetamin 325 mg TABLET PO ONE (15:00)
[2025-03-03] MEDS ORDERED: NS 1,000 ML IV SCH ×2 (15:00→16:55)
--- NOTE | 2025-03-03 16:48 | NUR ---
Pt. is awake in bed in ED19, when she welcomes my visit. Spouse is at bedside. The family is known to this area manager from the community. Facilitated a life update and Pt. verbalized the discomfort and nausea that she was experiencing. Pt. displayed evidence of trust and engagement. Matters of niyah and local tenriism ministry are considered. Prayed with the Pt. Pts. doctor arrived and after a short time the area manager excused himself. Spouse verbalized gratitude for the spiritual care visit.
[2025-03-03] MEDS ORDERED: Ondansetron HCl 2 MG / ML 2ML Vial IV PRN (16:55)
[2025-03-03] MEDS ORDERED: OxyCODONE 5 mg/Acetamin 325 mg TABLET PO PRN (16:55)
[2025-03-03] MEDS ORDERED: Labetalol HCL 5 MG/ML 4ML Injection (Single Dose) IV PRN (16:55)
[2025-03-03] MEDS ORDERED: HYDROmorphone HCl/Pf 1MG SYR IV PRN (16:55)
[2025-03-03] MEDS ORDERED: Metoclopramide HCl 5MG / ML 2ML Vial IV PRN (17:00)
[2025-03-03] MEDS ORDERED: FLU VACC TS2025(65UP)/MF59C/PF 45 MCG/0.5 ML SYRINGE IM SCH (17:00)
[2025-03-03] MEDS ORDERED: CefTRIAXone Sodium 1,000 MG in NS 100 ML IV SCH (17:08)
[2025-03-03 18:43] VITALS: BP 178/77
[2025-03-03 19:40] VITALS: BP 182/71
[2025-03-03] MEDS ORDERED: Lactobacil 2-S.Thermo-Bifido 1 1 Cap PO SCH (21:00)
[2025-03-03 22:14] VITALS: BP 150/59
[2025-03-04 04:04] VITALS: BP 150/49
[2025-03-04 05:24] LABS: Hematocrit 35.0 % (33.0-51.0); Hemoglobin 11.7 g/dL (11.5-16.0); Mean Corpuscular HGB Conc 33.4 g/dL (31.5-36.5); Mean Corpuscular Volume 97 fL (80-100); NRBC ABSOLUTE 0.00 K/mm3 (0.00-0.02); NRBC Auto 0.0 /100 WBC (0.0-0.2); Platelet Count 165 K/mm3 (150-400); RDW Coefficient Variation 12.1 % (11.7-14.2); RDW Standard Deviation 42.7 fL (35.1-46.3)
--- NOTE | 2025-03-04 05:35 | NUR ---
PT ADMITTED WITH UNCONTROLLED PAIN R/T DIVERTICULITIS. PT COMPLAINING OF PAIN AND NAUSEA AT THE BEGINNING OF THE EVENING PT RECEIVED ORDERED PERCOCET AND REGLAN. PT PLACED ON 2L NC WHILE SLEEPING D/T SPO2 READINGS IN THE LOW TO MID 80'S WHILE SLEEPING. RA AT BASELINE, STATES SHE HAS SLEEP APNEA BUT DOESNT WEAR A CPAP BECAUSE IT HURTS HER TEETH. PT ON CLEAR LIQUID DIET BUT HAS NO DESIRE TO EAT. MEDS WHOLE WITH WATER.
[2025-03-04 05:55] LABS: Anion Gap 7.0 mmol/L (3-11); Blood Urea Nitrogen 9.0 mg/dL (8-24); CO2, Blood 28.0 mmol/L (21-32); Calcium, Blood 8.7 mg/dL (8.5-10.1); Chloride, Blood 105.0 mmol/L (98-108); Creatinine, Blood 0.65 mg/dL (0.40-1.00); Glucose, Blood 147.0 mg/dL (70-99); Potassium, Blood 3.4 mmol/L (3.5-5.5); Sodium, Blood 137.0 mmol/L (136-145)
[2025-03-04] MEDS ORDERED: Insulin Human Lispro 100 Units/ML 3ML Syringe SC SCH (07:30)
[2025-03-04 07:31] VITALS: BP 163/66
[2025-03-04 15:16] VITALS: BP 164/67
[2025-03-04] MEDS ORDERED: MetroNIDAZOLE 500MG/NS 100 ml 100 ML IV SCH (17:08)
--- NOTE | 2025-03-04 18:22 | NUR ---
SHIFT SUMMARY PT IS A/OX4. SBA TO BATHROOM. PT REPORTING NAUSEA THROUGHOUT THIS SHIFT, MEDICATED WITH REGLAN PER JUL. PT DECLINING ZOFRAN AT THIS TIME. PT ALSO REPORTING A HEADACHE THROUGHOUT THIS SHIFT, MEDICATED WITH PERCOCET PER JUL. PT STATES "I FEEL LIKE ALL MY SYMPTOMS WOULD GO AWAY IF I COULD JUST POOP". PT REPORTS NO BOWEL MOVEMENT FOR 5 DAYS. LR RUNNING @ 75. VERY LITTLE ORAL INTAKE THIS SHIFT. PT IS PLEASANT AND COOPERATIVE WITH CARE AND CALLS APPROPRIATELY.
[2025-03-04 19:17] VITALS: BP 184/87
[2025-03-04 20:07] VITALS: BP 153/65
[2025-03-04 23:06] VITALS: BP 149/65
[2025-03-05] VITALS (7 sets, daily range): BP systolic 141–171; BP diastolic 47–70
--- NOTE | 2025-03-05 02:15 | NUR ---
INDOOR LANDSCAPER/GARDENER SUMMARY VSS. DX DIVERTICULITIS. TOLERATING CLEAR LIQUIDS WITH MEDS, IVF OF LR INFUSING AT 75 ML/HR AND ANTIBIOTICS. SOME VOICED PAIN AND NAUSEA, PAIN MEDS AND NAUSEA MEDS GIVEN SEE MAR FOR DETAILS. UP TO BATHROOM WITH ASSIST, OTHERWISE HAS BEEN RESTING QUIETLY WITH OCCASIONAL INTERRUPTIONS. CURRENTLY RESTING QUIETLY. CALL LIGHT IN REACH, RAILS UP X 2 AND BED IN LOW POSITIONFOR SAFETY.
[2025-03-05 04:52] LABS: BASOPHILS ABSOLUTE AUTO 0.05 K/mm3 (0.00-0.23); BASOPHILS PERCENT AUTO 1 % (0-2); EOSINOPHILS ABSOLUTE AUTO 0.06 K/mm3 (0.00-0.68); EOSINOPHILS PERCENT AUTO 1 % (0-6); Hematocrit 35.2 % (33.0-51.0); Hemoglobin 11.7 g/dL (11.5-16.0); IMMATURE GRAN ABSOLUTE AUTO 0.04 K/mm3 (0.00-0.10); IMMATURE GRAN PERCENT AUTO 0 % (0-1); LYMPHOCYTES ABSOLUTE AUTO 1.66 K/mm3 (0.84-5.20); LYMPHOCYTES PERCENT AUTO 18 % (21-46); MONOCYTES ABSOLUTE AUTO 0.57 K/mm3 (0.16-1.47); MONOCYTES PERCENT AUTO 6 % (4-13); Mean Corpuscular HGB Conc 33.2 g/dL (31.5-36.5); Mean Corpuscular Volume 97 fL (80-100); NEUTROPHILS ABSOLUTE AUTO 6.62 K/mm3 (1.96-9.15); NEUTROPHILS PERCENT AUTO 74 % (41-73); NRBC ABSOLUTE 0.00 K/mm3 (0.00-0.02); NRBC Auto 0.0 /100 WBC (0.0-0.2); Platelet Count 175 K/mm3 (150-400); RDW Coefficient Variation 11.9 % (11.7-14.2); RDW Standard Deviation 42.9 fL (35.1-46.3)
[2025-03-05 05:30] LABS: Anion Gap 11.0 mmol/L (3-11); Blood Urea Nitrogen 8.0 mg/dL (8-24); CO2, Blood 26.0 mmol/L (21-32); Calcium, Blood 8.8 mg/dL (8.5-10.1); Chloride, Blood 105.0 mmol/L (98-108); Creatinine, Blood 0.63 mg/dL (0.40-1.00); Glucose, Blood 136.0 mg/dL (70-99); Potassium, Blood 3.8 mmol/L (3.5-5.5); Sodium, Blood 138.0 mmol/L (136-145)
[2025-03-05] MEDS ORDERED: NS 250 ML IV PRN (09:15)
--- NOTE | 2025-03-05 17:04 | NUR ---
END OF SHIFT. PATIENT A&O4, IND IN ROOM WITH STANDBY ASSIST TO BATHROOM DUE TO LINES AND CORDS. GENERALIZED WEAKNESS. NO BM THIS SHIFT. PATIENT NPO WITH ICE CHIPS. NAUSEA WAS A ISSUE FOR THIS SHIFT, MEDICATING PER EMAR. TELE IN PLACE, ATTENDS IN PLACE, 1-2L O2 NC WHEN SLEEPING NEEDED, RA WHILE AWAKE. OXYGEN SATS >90% FOR THIS SHIFT. POWERGLIDE PLACED IN RIGHT UPPER ARM, INFUSING TO ORDER. NO OTHER CONCERNS FOR THIS SHIFT.
[2025-03-05] MEDS ORDERED: Insulin Human Lispro 100 Units/ML 3ML Syringe SC SCH (18:00)
[2025-03-06] VITALS (7 sets, daily range): BP systolic 152–179; BP diastolic 53–65
--- NOTE | 2025-03-06 03:21 | NUR ---
CHUCK TENDER SUMMARY BP ELEVATED, OTHERWISE VSS. ADMIT DX OF DIVERTICULITIS. MED TELE SR IN THE 70'S. NPO EXCEPT SIPS OF H2O. LR INFUSING AT 75 ML/HR AND ANTIBIOTICS IV - SOME C/O PAIN - MAR FOR DETAILS OF MEDS. A/O X 3-4. UP TO BATHROOM WITH ASSIST. HAS BEEN RESTING QUIETLY WITH FEW INTERRUPTIONS OF THIS WRITING. CALL LIGHT IN REACH, RAILS UP X 2 AND BED IN LOW POSITION FOR SAFETY. ACCU CHECKS Q 6 HR- NO INSULIN ADMIN OF THIS WRITING. WILL CONT TO MONITOR
[2025-03-06 05:46] LABS: BASOPHILS ABSOLUTE AUTO 0.04 K/mm3 (0.00-0.23); BASOPHILS PERCENT AUTO 1 % (0-2); EOSINOPHILS ABSOLUTE AUTO 0.09 K/mm3 (0.00-0.68); EOSINOPHILS PERCENT AUTO 1 % (0-6); Hematocrit 33.7 % (33.0-51.0); Hemoglobin 11.3 g/dL (11.5-16.0); IMMATURE GRAN ABSOLUTE AUTO 0.02 K/mm3 (0.00-0.10); IMMATURE GRAN PERCENT AUTO 0 % (0-1); LYMPHOCYTES ABSOLUTE AUTO 2.33 K/mm3 (0.84-5.20); LYMPHOCYTES PERCENT AUTO 30 % (21-46); MONOCYTES ABSOLUTE AUTO 0.52 K/mm3 (0.16-1.47); MONOCYTES PERCENT AUTO 7 % (4-13); Mean Corpuscular HGB Conc 33.5 g/dL (31.5-36.5); Mean Corpuscular Volume 96 fL (80-100); NEUTROPHILS ABSOLUTE AUTO 4.75 K/mm3 (1.96-9.15); NEUTROPHILS PERCENT AUTO 61 % (41-73); NRBC ABSOLUTE 0.00 K/mm3 (0.00-0.02); NRBC Auto 0.0 /100 WBC (0.0-0.2); Platelet Count 177 K/mm3 (150-400); RDW Coefficient Variation 11.9 % (11.7-14.2); RDW Standard Deviation 41.8 fL (35.1-46.3)
[2025-03-06 06:05] LABS: Anion Gap 12.0 mmol/L (3-11); Blood Urea Nitrogen 7.0 mg/dL (8-24); CO2, Blood 25.0 mmol/L (21-32); Calcium, Blood 8.9 mg/dL (8.5-10.1); Chloride, Blood 107.0 mmol/L (98-108); Creatinine, Blood 0.69 mg/dL (0.40-1.00); Glucose, Blood 112.0 mg/dL (70-99); Magnesium, Blood 2.0 mg/dL (1.6-2.4); Potassium, Blood 3.3 mmol/L (3.5-5.5); Sodium, Blood 141.0 mmol/L (136-145)
[2025-03-06] MEDS ORDERED: VITAMIN D5000 UNIT PO (12:33)
[2025-03-06] MEDS ORDERED: Norco 5-325 Ta1 EACH PO (12:33)
[2025-03-06] MEDS ORDERED: MULVITA PO ×2 (12:33)
[2025-03-06] MEDS ORDERED: FOLIC ACID0.4 MG PO (12:34)
[2025-03-06] MEDS ORDERED: [UNRECOGNIZED DRUG - CODE] PO (12:34)
--- NOTE | 2025-03-06 17:49 | NUR ---
SHIFT SUMMARY PATIENT IS A&OX4, PAINFUL IN HER ABDOMEN, STILL WITHOUT A BOWEL MOVEMENT TODAY. SHE DID AMBULATE IN THE HALLS WITH PT AND HER THIS AFTERNOON. SHE IS SBA FOR TRIPS TO THE BATHROOM. SHE IS CONTINENT. SHE HAS TELE RUNNING AT NSR 64PBM. SHE CONTINUES TO BE NAUSEOUS, BUT HAS NOT HAD ANY EPISODES OF EMESIS. SHE HAS BEEN TREATED PER EMAR FOR PAIN AND NAUSEA THROUGHOUT THE SHIFT. SHE IS ON 1L O2 BY NASAL CANNULA. CT SCAN OF THE ABDOMEN TODAY, POSSIBLE PLANS FROM DOC TO HAVE AN NG TUBE PLACED. SHE CONTINUES TO BE NPO DUE TO THE N/V. SHE IS COOPERATIVE WITH CARE AND CALLS APPROPRIATELY. BED IS LOW AND CALL LIGHT IS WITHIN REACH.
[2025-03-07] VITALS (8 sets, daily range): BP systolic 136–180; BP diastolic 52–62
--- NOTE | 2025-03-07 03:17 | NUR ---
INTERNAL SECURITY MANAGER SUMMARY VSS. A/O X 4. ADMIT DX DIVERTICULITIS. REMAINS NPO DUE TO NAUSEA. IVF OF LR INFUSING AT 75 ML/HR. OCCASSIONAL NAUSEA, RECEIVED ANTI NAUSEA MEDS - SEE MAR FOR DETAILS. UP WITH ASSIST TO BATHROOM, SOMEWHAT UNSTEADY. OTHERWISE HAS BEEN RESTING QUIETLY WITH HOB ELEVATED. CALL LIGHT IN REACH, RAILS UP X 2 AND BED IN LOW POSITION FOR SAFETY. WILL CONTINUE TO MONITOR.
[2025-03-07 04:50] LABS: BASOPHILS ABSOLUTE AUTO 0.04 K/mm3 (0.00-0.23); BASOPHILS PERCENT AUTO 1 % (0-2); EOSINOPHILS ABSOLUTE AUTO 0.10 K/mm3 (0.00-0.68); EOSINOPHILS PERCENT AUTO 1 % (0-6); Hematocrit 33.4 % (33.0-51.0); Hemoglobin 11.3 g/dL (11.5-16.0); IMMATURE GRAN ABSOLUTE AUTO 0.05 K/mm3 (0.00-0.10); IMMATURE GRAN PERCENT AUTO 1 % (0-1); LYMPHOCYTES ABSOLUTE AUTO 2.43 K/mm3 (0.84-5.20); LYMPHOCYTES PERCENT AUTO 33 % (21-46); MONOCYTES ABSOLUTE AUTO 0.51 K/mm3 (0.16-1.47); MONOCYTES PERCENT AUTO 7 % (4-13); Mean Corpuscular HGB Conc 33.8 g/dL (31.5-36.5); Mean Corpuscular Volume 96 fL (80-100); NEUTROPHILS ABSOLUTE AUTO 4.25 K/mm3 (1.96-9.15); NEUTROPHILS PERCENT AUTO 58 % (41-73); NRBC ABSOLUTE 0.00 K/mm3 (0.00-0.02); NRBC Auto 0.0 /100 WBC (0.0-0.2); Platelet Count 192 K/mm3 (150-400); RDW Coefficient Variation 11.9 % (11.7-14.2); RDW Standard Deviation 41.4 fL (35.1-46.3)
[2025-03-07 05:10] LABS: Anion Gap 10.0 mmol/L (3-11); Blood Urea Nitrogen 7.0 mg/dL (8-24); CO2, Blood 27.0 mmol/L (21-32); Calcium, Blood 8.9 mg/dL (8.5-10.1); Chloride, Blood 105.0 mmol/L (98-108); Creatinine, Blood 0.73 mg/dL (0.40-1.00); Glucose, Blood 97.0 mg/dL (70-99); Potassium, Blood 3.4 mmol/L (3.5-5.5); Sodium, Blood 139.0 mmol/L (136-145)
[2025-03-07] MEDS ORDERED: Insulin Human Lispro 100 Units/ML 3ML Syringe SC SCH (11:30)
[2025-03-07] MEDS ORDERED: Magnesium Hydroxide Conc 10 ML UDC PO PRN (12:00)
[2025-03-07] MEDS ORDERED: HYDROmorphone HCl/Pf 1MG SYR IV PRN (13:50)
--- NOTE | 2025-03-07 17:17 | NUR ---
SHIFT SUMMARY PATIENT IS A&OX4, SBA, WEARING 1L OF O2 AT NIGHT. STILL VERY NAUSEOUS AND PAINFUL. TREATING PER EMAR. BLOOD PRESSURES HAVE BEEN HIGH, >160, TX X2 WITH PRN LABETALOL. THE PATIENT HAD A SHOWER TODAY. SHE HAS A SCOPOLAMINE PATCH BEHIND HER LEFT EAR. SHE IS CURRENTLY RESTING IN BED. BED IS LOW AND LOCKED, CALL LIGHT IN REACH.
[2025-03-07] MEDS ORDERED: Ondansetron HCl 2 MG / ML 2ML Vial IV PRN (21:30)
--- NOTE | 2025-03-08 03:44 | NUR ---
AVIATION SAFETY INSPECTOR SUMMARY VSS. ALERT AND ORIENTED X 4. ADMIT DX ACUTE DIVERTICULITIS. NO BOWEL MOVEMENT THIS SHIFT, BUT UP TO BATHROOM WITH ASSIST TO VOID A FEW TIMES. REMAINS WEAK, BUT COOPERATIVE WITH CARE. CLEAR LIQUIDS TOLERATED IN SMALL AMTS. NAUSEA AND PAIN AT INTERVALS, SEE MAR FOR DETAILS RE ANALGESICS, ANTI NAUSEA MEDS AND IV ABX ADMIN. HAS BEEN RESTING QUIETLY WITH OCCASIONAL INTERRUPTIONS. CALL LIGHT IN REACH, RAILS UP X 2 AND BED IN LOW POSITION FOR SAFETY. WILL CONT TO MONITOR
[2025-03-08 04:22] VITALS: BP 138/56
[2025-03-08 05:20] LABS: BASOPHILS ABSOLUTE AUTO 0.04 K/mm3 (0.00-0.23); BASOPHILS PERCENT AUTO 1 % (0-2); EOSINOPHILS ABSOLUTE AUTO 0.08 K/mm3 (0.00-0.68); EOSINOPHILS PERCENT AUTO 1 % (0-6); Hematocrit 32.0 % (33.0-51.0); Hemoglobin 10.7 g/dL (11.5-16.0); IMMATURE GRAN ABSOLUTE AUTO 0.05 K/mm3 (0.00-0.10); IMMATURE GRAN PERCENT AUTO 1 % (0-1); LYMPHOCYTES ABSOLUTE AUTO 2.01 K/mm3 (0.84-5.20); LYMPHOCYTES PERCENT AUTO 28 % (21-46); MONOCYTES ABSOLUTE AUTO 0.56 K/mm3 (0.16-1.47); MONOCYTES PERCENT AUTO 8 % (4-13); Mean Corpuscular HGB Conc 33.4 g/dL (31.5-36.5); Mean Corpuscular Volume 96 fL (80-100); NEUTROPHILS ABSOLUTE AUTO 4.55 K/mm3 (1.96-9.15); NEUTROPHILS PERCENT AUTO 62 % (41-73); NRBC ABSOLUTE 0.00 K/mm3 (0.00-0.02); NRBC Auto 0.0 /100 WBC (0.0-0.2); Platelet Count 195 K/mm3 (150-400); RDW Coefficient Variation 11.8 % (11.7-14.2); RDW Standard Deviation 41.2 fL (35.1-46.3)
[2025-03-08 05:35] LABS: Anion Gap 12.0 mmol/L (3-11); Blood Urea Nitrogen 6.0 mg/dL (8-24); CO2, Blood 26.0 mmol/L (21-32); Calcium, Blood 8.7 mg/dL (8.5-10.1); Chloride, Blood 106.0 mmol/L (98-108); Creatinine, Blood 0.68 mg/dL (0.40-1.00); Glucose, Blood 107.0 mg/dL (70-99); Potassium, Blood 3.6 mmol/L (3.5-5.5); Sodium, Blood 140.0 mmol/L (136-145)
[2025-03-08 07:35] VITALS: BP 158/52
[2025-03-08] MEDS ORDERED: NS 250 ML IV PRN (07:40)
[2025-03-08 11:08] VITALS: BP 147/55
--- NOTE | 2025-03-08 12:21 | NUR ---
1150 PATIENT REQUESTED A 1/2 PLAIN TURKEY SANDWICH AND DIET PEPSI. PATIENT ATE THIS ITEM AND TOLERATED IT WELL, BUT DID DECLINE HER LUNCH TRAY. SHE IS CURRENTLY RESTING IN BED.
[2025-03-08] MEDS ORDERED: HYDROcodone 5-APAP 325 TAB PO PRN (13:55)
[2025-03-08 15:45] VITALS: BP 142/62
[2025-03-08 19:42] VITALS: BP 141/54
[2025-03-08 23:32] VITALS: BP 163/58
[2025-03-09 03:57] VITALS: BP 173/67
--- NOTE | 2025-03-09 05:24 | NUR ---
PT RESTED COMFORTABLY OVER NIGHT. SBA TO BATHROOM. NO ACUTE EVENTS, VITALS STABLE. BED IN LOW POSITION.
[2025-03-09 07:30] VITALS: BP 151/62
[2025-03-09] MEDS ORDERED: AMLO5 PO (10:06)
[2025-03-09] MEDS ORDERED: METO10 PO (10:07)
[2025-03-09] MEDS ORDERED: VISBIOME 112.51 EACH PO (10:07)
--- NOTE | 2025-03-09 11:16 | NUR ---
DISCHARGE NOTE: WENT OVER DISCHARGE WITH THE PATIENT. POWER GLIDE AND TELE REMOVED. PATIENT GOT HERSELF DRESSED AND COLLECTED BELONGINGS. PATIENT WAS WHEELED DOWN BY EMS MANAGER, NO SIGNS OR SYMPTOMS OF DISTRESS DURING DISCHARGE.
== END 2025-03-09 11:00 | disposition home or self-care (01) | DRG 392 ==
LOC: ER 12:53 → MEDS 12:54 → ER 14:26 → MEDS 14:26
PROVIDERS: Emergency Medicine; Nurse Practitioner Acute Care; Student in an Organized Health Care Education/Training Program; ADMIT Student in an Organized Health Care Education/Training Program
DX: K57.32 Diverticulitis of large intestine without perforation or abscess without bleeding (principal); E87.1 Hypo-osmolality and hyponatremia; H91.90 Unspecified hearing loss, unspecified ear; H83.8X9 Other specified diseases of inner ear, unspecified ear; I25.10 Atherosclerotic heart disease of native coronary artery without angina pectoris; M81.0 Age-related osteoporosis without current pathological fracture; K21.9 Gastro-esophageal reflux disease without esophagitis; E78.5 Hyperlipidemia, unspecified; R73.9 Hyperglycemia, unspecified; I10 Essential (primary) hypertension; E87.6 Hypokalemia; Z79.01 Long term (current) use of anticoagulants; Z79.52 Long term (current) use of systemic steroids; Z86.718 Personal history of other venous thrombosis and embolism; Z86.711 Personal history of pulmonary embolism; Z95.5 Presence of coronary angioplasty implant and graft; Z88.0 Allergy status to penicillin; Z88.8 Allergy status to other drugs, medicaments and biological substances
CPT/HCPCS: 36415; 74177; 80048; 80053; 82947; 83036; 83690; 83735; 85025; 85027; 93005; 93010; 94762; 96361; 96365-59; 96367; 96375; 96376; 97116; 97161; 97530; 99285-25; A9270; G0378; J0295; J0696; J1171; J2405; J2765; J3480; J7030; J7050; J7120; J7512; Q9967

== ENCOUNTER → 2025-03-27 | Outpatient (CLI) | payer MEDICARE ==
[~2025-03-27] MED LIST changes: +AMLO5 PO; +FOLIC ACID0.4 MG PO; +METO10 PO; +MULVITA PO; +Norco 5-325 Ta1 EACH PO; +VITAMIN D5000 UNIT PO; +[UNRECOGNIZED DRUG - CODE] PO
[2025-03-27 13:19] LABS: BASOPHILS ABSOLUTE AUTO 0.05 K/mm3 (0.00-0.23); BASOPHILS PERCENT AUTO 1 % (0-2); EOSINOPHILS ABSOLUTE AUTO 0.11 K/mm3 (0.00-0.68); EOSINOPHILS PERCENT AUTO 1 % (0-6); Hematocrit 38.7 % (33.0-51.0); Hemoglobin 12.6 g/dL (11.5-16.0); IMMATURE GRAN ABSOLUTE AUTO 0.03 K/mm3 (0.00-0.10); IMMATURE GRAN PERCENT AUTO 0 % (0-1); LYMPHOCYTES ABSOLUTE AUTO 3.34 K/mm3 (0.84-5.20); LYMPHOCYTES PERCENT AUTO 31 % (21-46); MONOCYTES ABSOLUTE AUTO 0.48 K/mm3 (0.16-1.47); MONOCYTES PERCENT AUTO 4 % (4-13); Mean Corpuscular HGB Conc 32.6 g/dL (31.5-36.5); Mean Corpuscular Volume 98 fL (80-100); NEUTROPHILS ABSOLUTE AUTO 6.81 K/mm3 (1.96-9.15); NEUTROPHILS PERCENT AUTO 63 % (41-73); NRBC ABSOLUTE 0.00 K/mm3 (0.00-0.02); NRBC Auto 0.0 /100 WBC (0.0-0.2); Platelet Count 156 K/mm3 (150-400); RDW Coefficient Variation 12.5 % (11.7-14.2); RDW Standard Deviation 45.1 fL (35.1-46.3)
[2025-03-27 13:28] LABS: Alanine Aminotransfer (ALT/SGP 40 U/L (12-78); Albumin, Blood 3.4 g/dL (3.4-5.0); Albumin/Globulin Ratio 1.1 (0.8-1.8); Anion Gap 10 mmol/L (3-11); Aspartate Aminotrans (AST/SGOT 24 U/L (12-37); Bilirubin, Total 0.5 mg/dL (0.1-1.0); Blood Urea Nitrogen 20 mg/dL (8-24); CHOL/HDL RATIO 2.9; CO2, Blood 24 mmol/L (21-32); Calcium, Blood 9.2 mg/dL (8.5-10.1); Chloride, Blood 111 mmol/L (98-108); Cholesterol 125 mg/dL (50-200); Creatinine, Blood 0.68 mg/dL (0.40-1.00); Globulin, Blood 3.1 g/dL (2.2-4.0); Glucose, Blood 181 mg/dL (70-99); HDL Cholesterol 43 mg/dL (>39); LDL/HDL RATIO 1.3; Low Density Lipoprotein Chol 57 mg/dL (0-110); Potassium, Blood 4.0 mmol/L (3.5-5.5); Sodium, Blood 141 mmol/L (136-145); Total Protein, Blood 6.5 g/dL (6.4-8.2); Triglycerides 125 mg/dL (30-160); Very Low Density Lipoprot Chol 25 mg/dL (6-32)
== END | disposition home or self-care (01) ==
LOC: LAB SHORT 09:22 → LAB 09:22
PROVIDERS: Nurse Practitioner Family
DX: Z13.6 Encounter for screening for cardiovascular disorders (principal); K57.32 Diverticulitis of large intestine without perforation or abscess without bleeding
CPT/HCPCS: 80053; 80061; 85025